=== PATIENT | female | born 1990 | race Caucasian/White ===

== ENCOUNTER 2016-06-17 01:18 | Emergency (ER) | payer MEDICAID ==
[~2016-06-17 01:18] MED LIST: MACR100C PO; ZOFR4TAB3 SL
[2016-06-17 02:32] LABS: BACTERIA, URINE RARE /hpf; BLOOD, URINE NEG (NEG); COMMENT (UR) CULT NOT INDICATED; CULTURE IF INDICATED CULT NOT INDICATED; GLUCOSE,URINE NEG (NEG); KETONE, URINE NEG (NEG); MUCUS URINE FEW /lpf (OCC); NITRITE,URINE NEG (NEG); PH, URINE 6.5 (5.0-8.5); SQUAMOUS EPITHELIAL CELL URINE 4 /hpf (0-5); URINE COLOR LIGHT-YELLOW (YELLW/STRAW)
[2016-06-17 03:19] LABS: AUTOMATED NEUTROPHIL # 6.6 TH/MM3 (1.8-7.7); BASOPHIL % 0.1 % (0.0-2.0); EOSINOPHIL # 0.2 TH/MM3 (0-0.4); EOSINOPHIL % 2.1 % (0.0-4.0); HEMATOCRIT 32.9 % (35.0-46.0); HEMO FLAGS DIFF FINAL; LYMPH % 21.7 % (9.0-44.0); LYMPHOCYTE # 2.2 TH/MM3 (1.0-4.8); MEAN CELL VOLUME 87.7 FL (80.0-100.0); MEAN CORPUSCULAR HEMOGLOBIN 30.3 PG (27.0-34.0); MEAN CORPUSCULAR HGB CONC 34.5 % (32.0-36.0); MONO % 9.5 % (0.0-8.0); NEUT % 66.6 % (16.0-70.0); PLATELET COUNT 176 TH/MM3 (150-450); RED BLOOD COUNT 3.75 MIL/MM3 (4.00-5.30); RED CELL DISTRIBUTION WIDTH 12.4 % (11.6-17.2); WHITE BLOOD COUNT 9.9 TH/MM3 (4.0-11.0)
--- NOTE | 2016-06-17 04:05 | PD ---
HPI Travel History International Travel<30 Days: No Contact w/Intl Traveler<30Days: No Known Affected Area: No History of Present Illness HPI This patient is a 25-year-old 5 para 1031 EDC is August 02, 2016 presently at 33 weeks and 3 days she presents with the chief complaint of contractions which began last night they increased during the day when she became active no rupture of membranes no vaginal bleeding the baby is active her next appointment with Dr. Nova's on June 22 states recent sexual intercourse day before yesterday History Past Medical History Narrative Medical Patient is allergic to Keflex no major medical problems Obstetric History Obstetric History First baby born in 2007 male infant weight 6 lbs. 7 oz. vaginal delivery VIP 3 Past Surgical History Narrative Surgical D&C Family History Narrative Family History Diabetes Social History Alcohol Use: No Tobacco Use: Yes Substance Abuse: No Allergies-Medications (Allergen,Severity, Reaction): Coded Allergies: Keflex (Verified Allergy, Severe, THROAT SWELLS, ITCHING, 12/21/15) Home Meds Active Scripts Ondansetron (Zofran ODT)4 Mg Tab4 Mg SL Q6HR PRN (NAUSEA OR VOMITING) #4 TAB FOR NAUSEA/VOMITING Prov:Saeed Hair MD 12/21/15 Nitrofurantoin Monohyd Macro (Macrobid)100 Mg [id number] Mg PO BID #14 CAP Prov:Saeed Hair MD 12/21/15 Review of Systems General / Constitutional: No: Fever, Weight Gain, Weight Loss, Chills, Other Eyes: No: Diploplia, Blurred Vision, Visual changes, Pain, Photophobia, Other HENT: No: Headaches, Vertigo, Dental Difficulties, Lightheadedness, Other Cardiovascular: No: Irregular Rhythm, Chest Pain or Discomfort, Palpitations, Tachycardia, Syncope, Varicosities, Edema, Cyanosis, Other Respiratory: No: Cough, Short of Breath, Wheezing, Other Gastrointestinal: Abdominal Pain (tractions as per history of present illness) Genitourinary: Frequency Physical Exam Narrative GENERAL: Well-nourished, well-developed patient. Alert oriented 3 and cooperative SKIN: Warm and dry. HEAD: Normocephalic and atraumatic. EYES: No scleral icterus. No injection or drainage. ENT: No nasal drainage noted. Mucous membranes pink. Airway patent. NECK: Supple, trachea midline. No JVD. CARDIOVASCULAR: Regular rate and rhythm without murmurs, gallops, or rubs. RESPIRATORY: Breath sounds equal bilaterally. No accessory muscle use. ABDOMEN/GI: Gravid consistent with stated gestational age soft nontender no palpable contractions no epigastric or right upper quadrant tenderness Gravid to [-] weeks size Fundal Height: [-] GENITOURINARY: Speculum exam is done no gross fluid or blood in vagina thin white discharge External Genitalia: intact and normal in appearance BUS glands: [-] Cervix: [-] Posterior firm Dilatation: [-] Closed Effacement: [-] 0 Station: [-] High Presentation: [-] Membranes: [intact Uterine Contractions: [-] Irregular FHT's: Category: [-] 1 Baseline: [-] 140 Reactive: [-] + Variability: [-] Moderate Decels: [-] 0 EXTREMITIES: No cyanosis or edema. 2+ reflexes NEUROLOGICAL: Awake and alert. Motor and sensory grossly within normal limits. Five out of 5 muscle strength in all muscle groups. Normal speech. Data Data Vital Signs Reviewed: Yes (111/66 pulse is 85 respiration 18 temperature is 98.1) Orders Vital Signs (Adult) .ON ADMISSION (06/17/16 02:17) ^ Labor Status (06/17/16 02:17) Urinalysis - C+S If Indicated (06/17/16 02:17) ^ Hydration (06/17/16 02:17) Fibronectin (06/17/16 03:05) Complete Blood Count With Diff (06/17/16 03:05) Vital Signs (Adult) .ON ADMISSION (06/17/16 03:57) ^ Labor Status (06/17/16 03:57) ^ Hydration (06/17/16 03:57) Fibronectin (06/17/16 03:57) Labs fibronectin is negative white count 9.9 hemoglobin 11.4 hematocrit 32.9 Laboratory Tests Test 06/17/16 06/17/16 01:40 03:00 Urine Color LIGHT-YELLOW Urine Turbidity CLEAR Urine pH 6.5 Urine Specific [place] 1.007 Urine Protein NEG Urine Glucose (UA) NEG Urine Ketones NEG Urine Occult Blood NEG Urine Nitrite NEG Urine Bilirubin NEG Urine Urobilinogen LESS THAN 2.0 Urine Leukocyte Esterase NEG Urine RBC 1 Urine WBC 1 Urine Squamous Epithelial 4 Cells Urine Bacteria RARE Urine Mucus FEW Microscopic Urinalysis Comment CULT NOT INDICATED White Blood Count 9.9 Red Blood Count 3.75 Hemoglobin 11.4 Hematocrit 32.9 Mean Corpuscular Volume 87.7 Mean Corpuscular Hemoglobin 30.3 Mean Corpuscular Hemoglobin 34.5 Concent Red Cell Distribution Width 12.4 Platelet Count 176 Mean Platelet Volume 8.4 Neutrophils (%) (Auto) 66.6 Lymphocytes (%) (Auto) 21.7 Monocytes (%) (Auto) 9.5 Eosinophils (%) (Auto) 2.1 Basophils (%) (Auto) 0.1 Neutrophils # (Auto) 6.6 Lymphocytes # (Auto) 2.2 Monocytes # (Auto) 0.9 Eosinophils # (Auto) 0.2 Basophils # (Auto) 0.0 CBC Comment DIFF FINAL Differential Comment Fibronectin NEGATIVE MDM Medical Record Reviewed: No Interpretation(s) 25-year-old at 33 weeks and 3 days contractions Taloga Robles Rule out UTI Narrative Course / MDM Patient feeling better Category 1 tracing Contractions resolved Fibronectin is negative Will give a dose of Vistaril Patient follow-up with Dr. Nova and 24-48 hours Plan External monitoring IV fluid hydration Urinalysis no culture indicated fibronectin is negative White count 9.9 Diagnosis Diagnosis: Primary Impression: Bandar Robles contractions Additional Impressions: 33 weeks gestation of Cigarette smoker Disposition: 01 DISCHARGE HOME Condition: Stable Patient Instructions: General Instructions, Labor (ED), Abdominal Pain in (ED) Additional Instructions: RETURN FOR CONTRACTIONS, LOSS OF FLUID (WATER BREAKING), VAGINAL BLEEDING, OR DECREASED MOVEMENT. DRINK 8-10 LARGE GLASSES OF WATER EVERY DAY. KEEP YOUR SCHEDULED APPOINTMENT WITH YOUR PROVIDER. Departure Forms: Tests/Procedures Malini Lopez MD Jun 17, 2016 04:05
== END 2016-06-17 04:20 | disposition home or self-care (01) ==
LOC: HOBED 01:18
DX: O47.03 False labor before 37 completed weeks of gestation, third trimester (principal); O99.333 Smoking (tobacco) complicating pregnancy, third trimester; Z3A.33 33 weeks gestation of pregnancy
CPT/HCPCS: 59025; 81001; 82731; 85025; 96360

== ENCOUNTER 2016-07-14 15:10 | Emergency (ER) | payer MEDICAID ==
--- NOTE | 2016-07-14 16:37 | PD ---
HPI Travel History International Travel<30 Days: No Contact w/Intl Traveler<30Days: No Known Affected Area: No History of Present Illness HPI This patient is a 25-year-old 5 para 1031 EDC is August 02, 2016 presently at 37 weeks and 2 days she presented with a chief complaint of possibly leaking fluid and decreased movement Patient of Dr. Estrada care has been unremarkable. Amnisure is negative. Biophysical profile is 10 out of 10 History Past Medical History Narrative Medical Patient is allergic to Keflex history of UTI Obstetric History Obstetric History First baby born in 2007 male infant weight 6 lbs. 7 oz. vaginal delivery Spontaneous AB 3 and one D&C done Past Surgical History Narrative Surgical D&C Family History Family History: Negative Social History Alcohol Use: No Tobacco Use: No Substance Abuse: No Allergies-Medications (Allergen,Severity, Reaction): Coded Allergies: Keflex (Verified Allergy, Severe, THROAT SWELLS, ITCHING, 07/14/16) Home Meds Active Scripts Ondansetron (Zofran ODT)4 Mg Tab4 Mg SL Q6HR PRN (NAUSEA OR VOMITING) #4 TAB FOR NAUSEA/VOMITING Prov:Saeed Hair MD 12/21/15 Nitrofurantoin Monohyd Macro (Macrobid)100 Mg [id number] Mg PO BID #14 CAP Prov:Saeed Hair MD 12/21/15 Review of Systems Genitourinary: Other (questionably leaking fluid) Physical Exam Narrative GENERAL: Well-nourished, well-developed patient. Alert oriented 3 and cooperative in no acute distress CARDIOVASCULAR: Regular rate and rhythm without murmurs, gallops, or rubs. RESPIRATORY: Breath sounds equal bilaterally. No accessory muscle use. ABDOMEN/GI: Gravid consistent with 37 weeks no palpable contractions Gravid to [-] weeks size Fundal Height: [-] GENITOURINARY: External Genitalia: intact and normal in appearance BUS glands: [-] Cervix: [-] Posterior soft Dilatation: [-] Fingertip Effacement: [-] 0 Station: [-] Ballotable Presentation: [-] Vertex Membranes: [intact Uterine Contractions: [-]0 FHT's: Category: [-] 1 Baseline: [-] 130 Reactive: [-] + Variability: [-] Moderate Decels: [-] 0 EXTREMITIES: No cyanosis or edema. BACK: Nontender without obvious deformity. No CVA tenderness. NEUROLOGICAL: Awake and alert. Motor and sensory grossly within normal limits. Five out of 5 muscle strength in all muscle groups. Normal speech. Data Data Vital Signs Reviewed: Yes (blood pressures 113/76 pulse 84 respirations 16 temperature is 98) Orders Vital Signs (Adult) .ON ADMISSION (07/14/16 15:50) ^ Labor Status (07/14/16 15:50) Urinalysis - C+S If Indicated (07/14/16 15:50) ^ Hydration (07/14/16 15:50) Group B Beta Strep Scrn (Gbs) (07/14/16 15:50) Us Ob Bpp Wo Nst W Repeat (07/14/16 15:50) Labs Biophysical profile 03/22 Amniotic fluid index is 16.5 estimated weight 5 lbs. 13 oz. the vertex presentation 3 vessel cord anterior grade 1-2 placenta no previa MDM Medical Record Reviewed: No Interpretation(s) 25-year-old at 37 weeks and 2 days Not in labor Clinical evidence of ruptured membranes 10 out of 10 biophysical profile Narrative Course / MDM Discharge home By mouth fluid hydration kick count Keep next appointment with Dr. Estrada Diagnosis Diagnosis: Primary Impression: 37 weeks gestation of Additional Impression: Decreased movement Disposition: DISCHARGE HOME Condition: Stable Malini Lopez MD Jul 14, 2016 16:36
[2016-07-14 17:24] LABS: BACTERIA, URINE OCC /hpf; BLOOD, URINE NEG (NEG); COMMENT (UR) CULT NOT INDICATED; CULTURE IF INDICATED CULT NOT INDICATED; GLUCOSE,URINE NEG (NEG); KETONE, URINE NEG (NEG); NITRITE,URINE NEG (NEG); PH, URINE 6.5 (5.0-8.5); SQUAMOUS EPITHELIAL CELL URINE 6 /hpf (0-5); URINE COLOR LIGHT-YELLOW (YELLW/STRAW)
== END 2016-07-14 16:44 | disposition home or self-care (01) ==
LOC: HOBED 15:10
DX: O36.8130 Decreased fetal movements, third trimester, not applicable or unspecified (principal); Z3A.37 37 weeks gestation of pregnancy
CPT/HCPCS: 59025; 76815; 76816; 76819; 81001; 84112; 87081

== ENCOUNTER 2016-07-19 01:45 | Emergency (ER) | payer MEDICAID ==
--- NOTE | 2016-07-19 02:36 | PD ---
HPI Chief Complaint contractions Date Seen: Jul 19, 2016 Time Seen: 02:25 Travel History International Travel<30 Days: No Contact w/Intl Traveler<30Days: No Known Affected Area: No History of Present Illness HPI 25-year-old 2 para 1 at 38+ weeks gestation with complaint of contractions. She denies rupture membranes, bleeding, decreased movement. Para: 1 : 2 History Past Medical History Medical History: Denies Significant Hx Obstetric History Obstetric History Prior vaginal delivery 1 Past Surgical History Narrative Surgical None Surgical History: No Previous Surgery Family History Family History: Negative Social History Alcohol Use: No Tobacco Use: Yes (2.) Substance Abuse: No Allergies-Medications (Allergen,Severity, Reaction): Coded Allergies: Keflex (Verified Allergy, Severe, THROAT SWELLS, ITCHING, 07/14/16) Home Meds Active Scripts Ondansetron (Zofran ODT)4 Mg Tab4 Mg SL Q6HR PRN (NAUSEA OR VOMITING) #4 TAB FOR NAUSEA/VOMITING Prov:Saeed Hair MD 12/21/15 Nitrofurantoin Monohyd Macro (Macrobid)100 Mg [id number] Mg PO BID #14 CAP Prov:Saeed Hair MD 12/21/15 Review of Systems Except as stated in HPI: all other systems reviewed are Neg Physical Exam Narrative GENERAL: Well-nourished, well-developed patient. SKIN: Warm and dry. HEAD: Normocephalic and atraumatic. EYES: No scleral icterus. No injection or drainage. ENT: No nasal drainage noted. Mucous membranes pink. Airway patent. NECK: Supple, trachea midline. No JVD. ABDOMEN/GI: Abdomen soft, non-tender, bowel sounds present, no rebound, no guarding Gravid to [-] weeks size Fundal Height: [-] GENITOURINARY: External Genitalia: intact and normal in appearance BUS glands: [-] Cervix: [-] Dilatation: [-1] Effacement: [50] Station: [-2-] Presentation: [-] Membranes: [intact ] Uterine Contractions: [Irregular-] FHT's: Category: [-1] Baseline: [-] Reactive: [-Yes] Variability: [-] Decels: [-] EXTREMITIES: No cyanosis or edema. BACK: Nontender without obvious deformity. No CVA tenderness. NEUROLOGICAL: Awake and alert. Motor and sensory grossly within normal limits. Five out of 5 muscle strength in all muscle groups. Normal speech. Data Data Vital Signs Reviewed: Yes MDM Medical Record Reviewed: Yes Narrative Course / MDM 25-year-old 2 para 1 at 38+ weeks gestation with irregular contractions , not in labor Plan: Labor precautions reviewed, follow-up for visit as scheduled Diagnosis Diagnosis: Primary Impression: 38 weeks gestation of Additional Impression: Irregular contractions Disposition: 01 DISCHARGE HOME Condition: Good ([id number]) Patient Instructions: General Instructions, Early Labor Signs (ED), Having Your Baby: The Labor Process (GEN), Movement (ED) Departure Forms: Tests/Procedures Cal Lazo MD Jul 19, 2016 02:36
== END 2016-07-19 04:53 | disposition home or self-care (01) ==
LOC: HOBED 01:45
DX: O62.2 Other uterine inertia (principal); O99.333 Smoking (tobacco) complicating pregnancy, third trimester; Z3A.38 38 weeks gestation of pregnancy
CPT/HCPCS: 59025

== ENCOUNTER → 2016-07-20 | Outpatient (CLI) | payer MEDICAID ==
[~2016-07-20] MED LIST changes: +IBUP-232 PO; +OXYC1TAB63 PO
== END ==
LOC: HPND 14:37
PROVIDERS: ATTEND Obstetrics & Gynecology
DX: O36.8130 Decreased fetal movements, third trimester, not applicable or unspecified (principal); O36.5930 Maternal care for other known or suspected poor fetal growth, third trimester, not applicable or unspecified
CPT/HCPCS: 76818

== ENCOUNTER 2016-07-27 20:02 | Inpatient (IN) | payer MEDICAID ==
[~2016-07-27] VITALS: Ht 152.4 cm; Wt 59.0 kg
[~2016-07-27 20:02] MED LIST changes: -IBUP-232 PO; -OXYC1TAB63 PO
[2016-07-27 20:37] VITALS: PULSE 75
[2016-07-27 20:38] VITALS: RESP 18
[2016-07-27] MEDS: LACTATED RINGER'S 1000 ML IV SCH (21:24)
[2016-07-27] MEDS ORDERED: MINERAL OIL 10 ML VIAL TOP PRN (21:30)
[2016-07-27] MEDS ORDERED: NS 1000 ML XX PRN (21:30)
[2016-07-27] MEDS ORDERED: NS 1000 ML IV PRN (21:30)
[2016-07-27] MEDS ORDERED: MISOPROSTOL 25 MCG SUPP VAGINAL ONE ×3 (21:30)
[2016-07-27] MEDS ORDERED: OXYTOCIN 30 UNITS 500ML PREMIX IV ONE (21:30)
[2016-07-27] MEDS ORDERED: LACTATED RINGER'S 1000 ML BOLUS IV PRN (21:30)
[2016-07-27] MEDS ORDERED: ZOLPIDEM TARTRATE 10 MG TAB PO PRN (21:30)
[2016-07-27] MEDS ORDERED: LIDOCAINE HCL 1% 50 ML VIAL INFIL PRN (21:30)
[2016-07-27] MEDS ORDERED: NS 500 ML BOLUS IV PRN (21:30)
[2016-07-27] MEDS ORDERED: LIDOCAINE HCL 1% 50 ML VIAL I-DERMAL PRN (21:30)
[2016-07-27] MEDS ORDERED: ONDANSETRON HCL 4 MG/2 ML VIAL IV PRN (21:30)
[2016-07-27] MEDS ORDERED: CITRIC ACID-SODIUM CITRATE LIQ 30 ML UDC PO SCH (21:30)
[2016-07-27] MEDS ORDERED: OXYTOCIN 30 UNITS/NS 500ML PREMIX IV SCH (21:30)
[2016-07-27 21:49] VITALS: BP 116/62; PULSE 72
[2016-07-27 21:50] VITALS: RESP 18
[2016-07-27 22:07] LABS: AUTOMATED NEUTROPHIL # 6.2 TH/MM3 (1.8-7.7); BASOPHIL % 0.2 % (0.0-2.0); EOSINOPHIL # 0.1 TH/MM3 (0-0.4); EOSINOPHIL % 1.3 % (0.0-4.0); HEMATOCRIT 33.7 % (35.0-46.0); HEMO FLAGS DIFF FINAL; LYMPH % 20.3 % (9.0-44.0); LYMPHOCYTE # 1.8 TH/MM3 (1.0-4.8); MEAN CELL VOLUME 86.6 FL (80.0-100.0); MEAN CORPUSCULAR HEMOGLOBIN 29.6 PG (27.0-34.0); MEAN CORPUSCULAR HGB CONC 34.2 % (32.0-36.0); MONO % 8.2 % (0.0-8.0); PLATELET COUNT 208 TH/MM3 (150-450); RED BLOOD COUNT 3.89 MIL/MM3 (4.00-5.30); WHITE BLOOD COUNT 8.8 TH/MM3 (4.0-11.0)
[2016-07-27 22:10] LABS: BACTERIA, URINE RARE /hpf; BLOOD, URINE MOD (NEG); COMMENT (UR) CULTURE INDICATED; CULTURE IF INDICATED CULTURE INDICATED; GLUCOSE,URINE NEG (NEG); KETONE, URINE NEG (NEG); MUCUS URINE FEW /lpf (OCC); NITRITE,URINE NEG (NEG); SQUAMOUS EPITHELIAL CELL URINE 7 /hpf (0-5); URINE COLOR YELLOW (YELLW/STRAW)
[2016-07-27] MEDS: LACTATED RINGER'S 1000 ML INJ 1,000 ML IV SCH (22:27)
[2016-07-27 22:50] VITALS: BP 113/57; PULSE 61
[2016-07-27 22:52] VITALS: RESP 18; TEMP 98.8
[2016-07-28] VITALS (35 sets, daily range): BP systolic 82–126; BP diastolic 47–96; PULSE 56–97; RESP 16–18; TEMP 97.6–98.4; O2SAT 96–100
[2016-07-28] MEDS ORDERED: MISOPROSTOL 25 MCG SUPP VAGINAL ONE (01:00)
[2016-07-28] MEDS ORDERED: TERBUTALINE INJ 1 MG/ML AMP ONE (02:58)
[2016-07-28] MEDS: LACTATED RINGER'S 1000 ML IV SCH ×2 (05:30→08:04)
[2016-07-28] MEDS: LACTATED RINGER'S 1000 ML INJ 1,000 ML IV SCH (05:30)
[2016-07-28] MEDS ORDERED: ePHEDrine/NS 25 MG/5 ML SYR ONE (07:24)
[2016-07-28] MEDS ORDERED: fentaNYL 2MCG-BUPIV 0.125% INJ 100 ML ONE (07:24)
[2016-07-28] MEDS ORDERED: NO SYSTEM NARCOTICS XX PRN (09:00)
[2016-07-28] MEDS ORDERED: ePHEDrine/NS 50 MG/5 ML SYR IV PRN (09:00)
[2016-07-28] MEDS ORDERED: fentaNYL 2MCG-BUPIV 0.125% 100 ML EPIDURAL SCH (09:00)
[2016-07-28] MEDS ORDERED: DO NOT ADMINISTER ANTICOAGULANTS XX PRN (09:00)
[2016-07-28] MEDS ORDERED: LIDOCAINE HCL 1% 50 ML VIAL ONE (09:52)
--- NOTE | 2016-07-28 11:43 | PD.OB.DELI ---
Delivery Date: Jul 28, 2016 Anesthesia: Epidural Episiotomy: None Vaginal Delivery: Normal Presentation: Occiput anterior Nuchal Cord: None Delayed cord clamping (45 sec): Yes Infant: Male One Minute : 8 Five Minute : 8 Weight: 5/13 Care: Suctioned, Spontaneous crying, Responded to stimulation Placenta: Spontaneous delivery, Intact, 3 vessel cord Laceration: Perineal laceration, 1 deg Repair: Vicryl running Additional Information Beautiful delivery of baby Sourav. Small 1st degree tear of right labia.. 5-0 vicryl Pita Estrada MD Jul 28, 2016 11:43
[2016-07-28] MEDS ORDERED: BENZOCAINE 20% TOPICAL SPRAY 60 ML CAN TOPICAL PRN (12:00)
[2016-07-28] MEDS ORDERED: DOCUSATE SODIUM 50 MG/SENNA 8.6 MG TAB PO PRN (12:00)
[2016-07-28] MEDS ORDERED: ONDANSETRON ODT 4 MG TAB PO PRN (12:00)
[2016-07-28] MEDS ORDERED: OXYTOCIN 30 UNITS-500ML PREMIX 500 ML IV ONE (12:00)
[2016-07-28] MEDS ORDERED: ZOLPIDEM TARTRATE 5 MG TAB PO PRN (12:00)
[2016-07-28] MEDS ORDERED: SODIUM CHLORIDE 0.9% FLUSH 5 ML FLUSH IV PRN (12:00)
[2016-07-28] MEDS ORDERED: ALUMINUM/MAGNESIUM/SIMETH 30 ML CUP PO PRN (12:00)
[2016-07-28] MEDS ORDERED: ACETAMINOPHEN 325 MG TAB PO PRN (12:00)
--- NOTE | 2016-07-28 12:40 | MH ---
cc: VANIA ESTRADA DATE OF ADMISSION: 07/27/2016 ADMISSION DIAGNOSIS 1. Intrauterine at 39 weeks. 2. Intrauterine growth restriction. HISTORY OF PRESENT ILLNESS Terrance is a 25-year-old white female, para 1-0-2-1, whose last menstrual period and early ultrasound put her a little over 39 weeks. She comes in today for a repeat scan and to get tested. I felt she had IUGR, she was measuring under the 10th percentile, sent her to diagnostics and they got a normal scan. However, she came back today and we re-measured her biometry and she certainly is intrauterine growth restricted. Therefore we are going to go ahead and induce her at this time. She is getting a biophysical profile today. PAST OB HISTORY She is para 1-0-2-1. She had one term . She had one SAB, one TAB. She is Rh negative. PAST DIRECTOR INDUSTRIAL HISTORY Her Pap smear in January 2016 was negative. Her cultures in January 2016 were negative. PAST SURGICAL HISTORY Negative. PAST MEDICAL HISTORY 1. Headaches. 2. Lower back pain. 3. Heart palpitations. 4. Anemia. SOCIAL HISTORY She is single. She smokes 2-3 cigarettes per day. She does not drink alcohol or take drugs. FAMILY HISTORY Diabetes mellitus and breast cancer in her grandparents. ALLERGIES CEPHALOSPORINS. MEDICATIONS Current medications are vitamins. REVIEW OF SYSTEMS No headaches, no scotoma. She is a little bit short of breath but no cough or cold. She has no pressure in her chest or pain in her chest. She reports good movement. Denies rupture of membranes, bleeding or regular uterine contractions. PHYSICAL EXAMINATION GENERAL: A well-developed, well-nourished female in no acute distress. VITAL SIGNS: Weight is 120. Blood pressure 110/68. HEENT: Normocephalic, atraumatic. NECK: Supple. Trachea is midline. No thyromegaly or adenopathy. CHEST: Clear to auscultation. HEART: Regular rate and rhythm without murmur. ABDOMEN: The abdomen is gravid, nontender. The fundal height is small, measuring 34 cm. PELVIC: External genitalia is normal. The vagina is clean. Cervix is 1-2 cm, 20-30% effaced, mid position, soft. EXTREMITIES: No clubbing, cyanosis or edema. ASSESSMENT AND PLAN 1. Intrauterine at 39+ weeks. 2. Intrauterine growth restriction. She needs to be delivered. Will put her in the hospital [facility] for Cytotec cervical ripening and start Pitocin in the morning. Her last baby came fairly quickly without any difficulties. I am expecting a normal vaginal delivery. 3. Anemia. Will check her blood count on admission and give her iron as needed. 4. Tobacco abuse counseling. She is advised to quit smoking especially since the baby is coming home. 5. Rh negative. We need to give her RhoGAM if she needs it. Will check the baby's blood type once the baby is born. 6. GBS is negative. R. Vania Estrada MD RJV/BT /2:40 PM /12:40 PM
[2016-07-28] MEDS: WITCH HAZEL 50%/GLYCERIN 12.5% 40 PAD JAR TOPICAL PRN (14:06)
[2016-07-28] MEDS ORDERED: MEASLES, MUMPS, RUBELLA VACCINE 0.5 ML VIAL SQ ONE (16:00)
[2016-07-28] MEDS ORDERED: DIPHTH/TETANUS/ACEL PERTUSSIS (BOOSTER) 0.5 ML VIAL/PFS IM ONE (16:00)
[2016-07-28] MEDS: IBUPROFEN 600 MG TAB PO PRN (16:33)
[2016-07-28] MEDS ORDERED: SODIUM CHLORIDE 0.9% FLUSH 5 ML FLUSH IV SCH (21:00)
[2016-07-28] MEDS: oxyCODONE/ACETAMINOPHEN 5 MG/325 MG TAB PO PRN (21:24)
[2016-07-29] MEDS: oxyCODONE/ACETAMINOPHEN 5 MG/325 MG TAB PO PRN ×2 (02:05→11:03)
[2016-07-29] MEDS: IBUPROFEN 600 MG TAB PO PRN ×2 (05:44→20:04)
[2016-07-29] MEDS ORDERED: OXYC1TAB63 PO (07:52)
[2016-07-29] MEDS ORDERED: IBUP-232 PO (07:52)
--- NOTE | 2016-07-29 10:14 | HHI.OB ---
Subjective Post Day: 1 Objective Vitals/I&O Vital Signs Date Time Temp Pulse Resp B/P Pulse Ox O2 Delivery O2 Flow Rate FiO2 07/28/16 14:00 98.4 56 16 117/70 07/28/16 13:00 80 105/64 07/28/16 12:46 96 114/69 07/28/16 12:31 68 115/47 07/28/16 12:16 59 100/70 07/28/16 12:02 63 113/67 07/28/16 11:40 18 07/28/16 11:30 94 109/79 07/28/16 11:15 92 111/96 07/28/16 11:05 98 07/28/16 11:05 90 07/28/16 11:00 100 07/28/16 11:00 126/80 07/28/16 11:00 85 07/28/16 10:55 61 07/28/16 10:50 62 07/28/16 10:45 62 112/78 07/28/16 10:40 59 07/28/16 10:35 60 07/28/16 10:30 58 106/72 07/28/16 10:25 63 07/28/16 10:20 58 07/28/16 10:15 58 114/70 100 Objective Remarks GENERAL: Well-nourished, well-developed patient. CARDIOVASCULAR: Regular rate and rhythm without murmurs, gallops, or rubs. RESPIRATORY: Breath sounds equal bilaterally. No accessory muscle use. ABDOMEN/GI: Abdomen soft, non-tender. Fundus: Firm, non-tender at umbilicus. GENITOURINARY: Light to moderate bleeding. EXTREMITIES: No cyanosis or edema, non-tender, without signs of DVT. Medications and IVs Current Medications Medications (Trade) Dose Ordered Sig/Mendy Route Start Time Stop Time Status Last Admin (NS Flush) 2 ml BID IV 07/28/16 21:00 07/28/16 21:00 (NS Flush) 2 ml UNSCH PRN IV 07/28/16 12:00 (Tylenol) 650 mg Q4H PRN PO 07/28/16 12:00 (Motrin) 600 mg Q6H PRN PO 07/28/16 12:00 07/29/16 05:44 (Percocet 5-325 Mg) 1 tab Q4H PRN PO 07/28/16 12:00 (Percocet 5-325 Mg) 2 tab Q4H PRN PO 07/28/16 12:00 07/29/16 02:05 (Americaine 20% Top Spr) 1 spray Q4H PRN TOPICAL 07/28/16 12:00 07/28/16 14:06 (Tucks Pads) 1 applic QID PRN TOPICAL 07/28/16 12:00 07/28/16 14:06 (Denise-Colace) 2 tab Q12H PRN PO 07/28/16 12:00 (Ambien) 5 mg HS PRN PO 07/28/16 12:00 (Mag-Al Plus Susp Liq) 15 ml Q8H PRN PO 07/28/16 12:00 (Zofran Odt) 4 mg Q6H PRN PO 07/28/16 12:00 Assessment/Plan Problem List: (1) Normal vaginal delivery Assessment and Plan pt doing well bonding with pain well controlled with oral pain medication routine Discharge Planning consider dc home tomorrow Dina Peña Jul 29, 2016 10:14
--- NOTE | 2016-07-29 10:15 | HHI.DCPOC ---
Discharge Care Plan Diagnosis: (1) Normal vaginal delivery Your Health Problems Are: Vaginal delivery Report Symptoms to Your Doctor -Temperate above 100.5 degrees -Redness, of incision or excessive or foul smelling drainage -Unusual pain or calf pain -Increased vaginal bleeding -Painful or difficulty urinating -Feelings of extreme sadness or anxiety after 2 weeks Goals to Promote Your Health * To prevent worsening of your condition and complications * To maintain your health at the optimal level Directions to Meet Your Goals Take your medications as prescribed Follow your dietary instruction Follow activity as directed Ensure plenty of rest for recovery Drink fluids for hydration Keep your appointments as scheduled Take your immunizations and boosters as scheduled If your symptoms worsen call your PCP, if no PCP go to Urgent Care Center or Emergency Room Smoking is Dangerous to Your Health. Avoid second hand smoke Call the 24-hour crisis hotline for domestic abuse at Dina Peña Jul 29, 2016 10:15
--- NOTE | 2016-07-29 10:20 | HHI.DS ---
Admission Date Jul 27, 2016 at 20:02 Discharge Date: Jul 30, 2016 Admitting Diagnosis 38 weeks iugr Diagnosis: (1) Normal vaginal delivery Delivery Date: Jul 28, 2016 Vaginal Delivery: Normal : Male Brief History 38 weeks IUGR induction Hospital Course induction at 38 weeks for IUGR routine Pt Condition on Discharge: Good Discharge Disposition: Discharge Home Discharge Instructions Diet Instructions: As Tolerated, No Restrictions Additional Diet Instructions: Drink at least 8 - 16 oz bottles of water a day Activities You Can Perform: Shower Only-No Bath, Sitz Bath Activities to Avoid: Lifting/Bending, Sexual Activity Additional Activity Instruc.: No driving until off pain medications Do not lift anything heavier than your baby in an infant carrier Follow up Referrals: BUSINESS ANALYST - 2 Weeks @ [facility] [place] New Medications: Ibuprofen (Ibuprofen) 600 Mg Tab 600 MG PO Q6H Pain Management #30 Ref 1 TAB Oxycodone-Acetaminophen (Oxycodone-Acetaminophen) 5-325 mg Tab 1 TAB PO Q4H moderate pain #15 TAB Dina Peña Jul 29, 2016 10:20
[2016-07-30] MEDS: oxyCODONE/ACETAMINOPHEN 5 MG/325 MG TAB PO PRN ×3 (00:17→10:24)
[2016-07-30] MEDS: IBUPROFEN 600 MG TAB PO PRN (05:45)
[2016-07-30 07:20] VITALS: BP 114/80; PULSE 54; RESP 16; TEMP 97.9
[2016-07-30] MEDS: WITCH HAZEL 50%/GLYCERIN 12.5% 40 PAD JAR TOPICAL PRN (08:45)
--- NOTE | 2016-07-30 09:39 | HHI.OB ---
Subjective Post Day: 2 Objective Vitals/I&O vs stable Objective Remarks GENERAL: Well-nourished, well-developed patient. CARDIOVASCULAR: Regular rate and rhythm without murmurs, gallops, or rubs. RESPIRATORY: Breath sounds equal bilaterally. No accessory muscle use. ABDOMEN/GI: Abdomen soft, non-tender. Fundus: Firm, non-tender at umbilicus. GENITOURINARY: Light to moderate bleeding. EXTREMITIES: No cyanosis or edema, non-tender, without signs of DVT. Medications and IVs Current Medications Medications (Trade) Dose Ordered Sig/Mendy Route Start Time Stop Time Status Last Admin (NS Flush) 2 ml BID IV 07/28/16 21:00 07/28/16 21:00 (NS Flush) 2 ml UNSCH PRN IV 07/28/16 12:00 (Tylenol) 650 mg Q4H PRN PO 07/28/16 12:00 (Motrin) 600 mg Q6H PRN PO 07/28/16 12:00 07/30/16 05:45 (Percocet 5-325 Mg) 1 tab Q4H PRN PO 07/28/16 12:00 07/30/16 05:45 (Percocet 5-325 Mg) 2 tab Q4H PRN PO 07/28/16 12:00 07/29/16 02:05 (Americaine 20% Top Spr) 1 spray Q4H PRN TOPICAL 07/28/16 12:00 07/28/16 14:06 (Tucks Pads) 1 applic QID PRN TOPICAL 07/28/16 12:00 07/30/16 08:45 (Denise-Colace) 2 tab Q12H PRN PO 07/28/16 12:00 07/29/16 11:03 (Ambien) 5 mg HS PRN PO 07/28/16 12:00 (Mag-Al Plus Susp Liq) 15 ml Q8H PRN PO 07/28/16 12:00 (Zofran Odt) 4 mg Q6H PRN PO 07/28/16 12:00 Assessment/Plan Problem List: (1) Normal vaginal delivery Plan: routine Assessment and Plan pt doing well bonding with pain well controlled with oral pain medication routine Discharge Planning dc home today Dina Peña Jul 30, 2016 09:39
== END 2016-07-30 13:08 | disposition home or self-care (01) | DRG 775 ==
LOC: H2EB 20:02 → H1EA 07-28 13:30
PROVIDERS: ADMIT Obstetrics & Gynecology; ATTEND Obstetrics & Gynecology
PROC: 3E0P7GC Introduction of Other Therapeutic Substance into Female Reproductive, Via Natural or Artificial Opening (ICD-10-PCS; 2016-07-27)
PROC: 10E0XZZ Delivery of Products of Conception, External Approach (ICD-10-PCS; principal; 2016-07-28)
PROC: 0HQ9XZZ Repair Perineum Skin, External Approach (ICD-10-PCS; 2016-07-28)
PROC: 3E0S3CZ (ICD-10-PCS; 2016-07-28)
PROC: 00HU33Z Insertion of Infusion Device into Spinal Canal, Percutaneous Approach (ICD-10-PCS; 2016-07-28)
DX: O36.5930 Maternal care for other known or suspected poor fetal growth, third trimester, not applicable or unspecified (principal); O99.02 Anemia complicating childbirth; D64.9 Anemia, unspecified; O70.0 First degree perineal laceration during delivery; O99.334 Smoking (tobacco) complicating childbirth; F17.210 Nicotine dependence, cigarettes, uncomplicated; Z37.0 Single live birth; Z3A.39 39 weeks gestation of pregnancy
CPT/HCPCS: 59025; 81001; 85025; 85461; 86850; 86900; 86901; 87086; 88307; 90384; 90715; J2405; J2590; J2790; J3010; J3105; J7120

== ENCOUNTER 2017-06-24 09:32 | Emergency (ER) | payer MEDICAID ==
[~2017-06-24] VITALS: Ht 152.4 cm; Wt 50.0 kg
[~2017-06-24 09:32] MED LIST changes: +IBUP-232 PO; -MACR100C PO; +OXYC1TAB63 PO; -ZOFR4TAB3 SL
[2017-06-24 09:34] VITALS: BP 122/75; PULSE 105; RESP 16; TEMP 98.6; O2SAT 99
[2017-06-24] MEDS ORDERED: MAGICADU2 SWISH-SPIT (12:11)
[2017-06-24] MEDS ORDERED: PENI500T PO (12:11)
--- NOTE | 2017-06-24 12:16 | PD ---
HPI Chief Complaint: Oral / Dental Pain or Problem Time Seen by Provider: 11:58 Travel History International Travel<30 days: No Contact w/Intl Traveler<30days: No Traveled to known affect area: No History of Present Illness HPI This is a 26 her old female who is who is 12 weeks estimated gestational age based on ultrasound performed 2 weeks ago. She presents for evaluation of dental pain. Symptoms started 1 week ago. Pain is a throbbing pain, constant, localized to the right mandibular first molar, unrelieved with use [id number] analgesics. Denies fevers, chills, cough, congestion, sore throat. She is attempting to establish care with a dentist. She has no other complaints at this time. PFSH Past Medical History Cancer: No Cardiovascular Problems: No Diminished Hearing: No Endocrine: No Genitourinary: No Immune Disorder: No Implanted Vascular Access Dvce: No Musculoskeletal: No Neurologic: No Psychiatric: No Reproductive: Yes (PCOS) Respiratory: No Immunizations Current: No Myocardial Infarction: Yes (SINCE 5TH GRADE; (11/12/10 patient denies)) Tetanus Vaccination: < 5 Years Influenza Vaccination: Yes ?: LMP: 04/12/2017 : 6 Para: 2 Miscarriage: 3 : 1 Ovarian Cysts: Yes Dilation and Curettage (D&C): Yes Past Surgical History Gynecologic Surgery: Yes Other Surgery: No Social History Alcohol Use: No Tobacco Use: No (quit 3 months ago) Substance Use: Yes (marijuana occasionally ) Allergies-Medications (Allergen,Severity, Reaction): Coded Allergies: cephalexin (Unverified Allergy, Severe, THROAT SWELLS, ITCHING, 06/24/17) Reported Meds & Prescriptions Reported Meds & Active Scripts Active Magic Mouthwash Adult Liq (Multi-Ingredient Mouthwash/Gargle) 120 Ml Susp 10 Ml SWISH-SPIT ACHS Each 5mL contains: Nystatin 200,000units, Diphenhydramine 4.25mg, Viscous Lidocaine 10mg, Sheridan syrup 0.8 mL Penicillin V Potassium 500 Mg Tab 500 Mg PO Q8H 7 Days Ibuprofen 600 Mg Tab 600 Mg PO Q6H Oxycodone-Acetaminophen 5-325 mg Tab 1 Tab PO Q4H Review of Systems Except as stated in HPI: all other systems reviewed are Neg Physical Exam Narrative GENERAL: Well-developed well-nourished female in no acute distress SKIN: Warm and dry. HEAD: Atraumatic. Normocephalic. EYES: Pupils equal and round. No scleral icterus. No injection or drainage. ENT: No nasal bleeding or discharge. Mucous membranes pink and moist. The right mandibular first molar is decayed and tender to palpation. NECK: Trachea midline. No JVD. No lymphadenopathy or submandibular edema. CARDIOVASCULAR: Regular rate and rhythm. No murmur appreciated. RESPIRATORY: No accessory muscle use. Clear to auscultation. Breath sounds equal bilaterally. GASTROINTESTINAL: Abdomen soft, non-tender, nondistended. Hepatic and splenic margins not palpable. Data Data Last Documented VS Vital Signs Date Time Temp Pulse Resp B/P (MAP) Pulse Ox O2 Delivery O2 Flow Rate FiO2 06/24/17 09:34 98.6 105 16 122/75 (91) 99 Orders Orders Ed Discharge Order (06/24/17 12:12) [facility] Medical Decision Making Medical Screen Exam Complete: Yes Emergency Medical Condition: Yes Medical Record Reviewed: Yes Differential Diagnosis Dental caries, pulpitis, pericoronitis, periodontal abscess Narrative Course The patient has dental caries. She has an allergy Keflex but she has taken penicillin multiple times in the past with no problems. She will be discharged with penicillin. Diagnosis Primary Impression: Dental caries Additional Instructions: Medication as prescribed. Follow up with a dentist. Return for any emergent medical conditions. Med/Other Pt SpecificInfo: Prescription(s) given Scripts Cmjqohir-Vcascxxzwyczobu-Lqaafwqsh Liq (Magic Mouthwash Adult Liq) 120 Ml Susp 10 ML SWISH-SPIT ACHS for Mouth sores, #120 ML 1 Refill Each 5mL contains: Nystatin 200,000units, Diphenhydramine 4.25mg, Viscous Lidocaine 10mg, Sheridan syrup 0.8 mL Prov: Geovanny Barakat MD 06/24/17 Penicillin V Potassium (Penicillin V Potassium) 500 Mg Tab 500 MG PO Q8H for Infection for 7 Days, #21 TAB 0 Refills Prov: Geovanny Barakat MD 06/24/17 Disposition: 01 DISCHARGE HOME Condition: Stable Torsten Ruiz Jun 24, 2017 12:16
== END 2017-06-24 12:35 | disposition home or self-care (01) ==
LOC: NEPD 09:32
DX: O99.611 Diseases of the digestive system complicating pregnancy, first trimester (principal); K02.9 Dental caries, unspecified; Z3A.12 12 weeks gestation of pregnancy
CPT/HCPCS: 99284

== ENCOUNTER 2017-07-18 13:53 | Emergency (ER) | payer MEDICAID ==
[~2017-07-18 13:53] MED LIST changes: +MAGICADU2 SWISH-SPIT; +PENI500T PO
[2017-07-18 13:56] VITALS: BP 139/68; PULSE 101; RESP 18; TEMP 98.3; O2SAT 99
[2017-07-18 16:47] LABS: BACTERIA, URINE FEW /hpf; BILIRUBIN, URINE NEG (NEG); BLOOD, URINE NEG (NEG); GLUCOSE,URINE NEG (NEG); KETONE, URINE 10 mg/dL (NEG); MUCUS URINE FEW /lpf (OCC); NITRITE,URINE NEG (NEG); SQUAMOUS EPITHELIAL CELL URINE 23 /hpf (0-5); URINE COLOR YELLOW (YELLW/STRAW); URINE LEUKOCYTE ESTERASE MOD (NEG)
[2017-07-18 16:47] LABS: AUTOMATED NEUTROPHIL # 7.2 TH/MM3 (1.8-7.7); BASOPHIL % 0.2 % (0.0-2.0); EOSINOPHIL # 0.1 TH/MM3 (0-0.4); EOSINOPHIL % 1.1 % (0.0-4.0); HEMATOCRIT 37.1 % (35.0-46.0); HEMOGLOBIN 12.9 GM/DL (11.6-15.3); LYMPHOCYTE # 1.1 TH/MM3 (1.0-4.8); MEAN CELL VOLUME 89.3 FL (80.0-100.0); MEAN CORPUSCULAR HGB CONC 34.7 % (32.0-36.0); MEAN PLATELET VOLUME 7.7 FL (7.0-11.0); MONO % 6.1 % (0.0-8.0); MONOCYTE # 0.5 TH/MM3 (0-0.9); NEUT % 80.6 % (16.0-70.0); PLATELET COUNT 201 TH/MM3 (150-450); RED BLOOD COUNT 4.16 MIL/MM3 (4.00-5.30); RED CELL DISTRIBUTION WIDTH 13.1 % (11.6-17.2); WHITE BLOOD COUNT 8.9 TH/MM3 (4.0-11.0)
[2017-07-18 16:52] LABS: ALBUMIN 3.1 GM/DL (3.4-5.0); ALT (GPT) 10 U/L (10-53); AST (GOT) 12 U/L (15-37); BICARBONATE 27.6 MEQ/L (21.0-32.0); BLOOD UREA NITROGEN 8 MG/DL (7-18); CALCIUM 8.7 MG/DL (8.5-10.1); CHLORIDE 102 MEQ/L (98-107); CREATININE 0.43 MG/DL (0.50-1.00); GLOMERULAR FILTRATION RATE 177 ML/MIN (>89); GLUCOSE,RANDOM 94 MG/DL (74-106); SODIUM (NA) 136 MEQ/L (136-145)
[2017-07-18 16:55] LABS: ALKALINE PHOSPHATASE 67 U/L (45-117); TOTAL BILIRUBIN ADULT 0.5 MG/DL (0.2-1.0); TOTAL PROTEIN 7.1 GM/DL (6.4-8.2)
[2017-07-18] MEDS ORDERED: POTASSIUM BICARBONATE 25 MEQ EFFERVESCENT TAB PO ONE (17:30)
--- NOTE | 2017-07-18 18:28 | PD ---
HPI Chief Complaint: Pain: Acute or Chronic Time Seen by Provider: 17:07 Travel History International Travel<30 days: No Contact w/Intl Traveler<30days: No Traveled to known affect area: No History of Present Illness HPI The patient was seen and examined in the presence of the nurse. This patient has some vague diffuse minor complaints. He has some diffuse myalgias and body aches. She has some discomfort in her sides. Her pain is rather diffuse including the chest but not specifically chest pain. She is not short of breath. She has no hemoptysis or fever or cough or runny nose or congestion. She denies pelvic pain or vaginal bleeding. She is 16 weeks dated by ultrasound. She does follow with OB regularly. Symptoms severity is mild. No alleviating factors. No exacerbating factors. Duration one week. PFSH Past Medical History Cancer: No Cardiovascular Problems: No Diminished Hearing: No Endocrine: No Genitourinary: No Immune Disorder: No Implanted Vascular Access Dvce: No Musculoskeletal: No Neurologic: No Psychiatric: No Reproductive: Yes (PCOS) Respiratory: No Immunizations Current: No Myocardial Infarction: Yes (SINCE 5TH GRADE; (11/12/10 patient denies)) Tetanus Vaccination: < 5 Years Influenza Vaccination: Yes ?: : 6 Para: 2 Miscarriage: 3 : 1 Ovarian Cysts: Yes Dilation and Curettage (D&C): Yes Past Surgical History Gynecologic Surgery: Yes Other Surgery: No Social History Alcohol Use: No Tobacco Use: No Substance Use: Yes (marijuana occasionally ) Allergies-Medications (Allergen,Severity, Reaction): Coded Allergies: cephalexin (Unverified Allergy, Severe, THROAT SWELLS, ITCHING, 07/18/17) Reported Meds & Prescriptions Reported Meds & Active Scripts Active Review of Systems General / Constitutional: No: Fever Eyes: No: Visual changes HENT: No: Headaches Cardiovascular: Positive: Chest Pain or Discomfort Respiratory: No: Shortness of Breath Gastrointestinal: No: Abdominal Pain Genitourinary: No: Dysuria Musculoskeletal: Positive: Myalgias, Pain Skin: No Rash Neurologic: No: Weakness Psychiatric: No: Depression Endocrine: No: Polydipsia Hematologic/Lymphatic: No: Easy Bruising Physical Exam Narrative GENERAL: Well-nourished, well-developed patient in no apparent distress. SKIN: Focused skin assessment reveals no rash and nodules. Skin is Warm and dry. HEAD: Atraumatic. Normocephalic. EYES: Pupils equal and round. No scleral icterus. No injection or drainage. ENT: No nasal bleeding or discharge. Mucous membranes pink and moist. NECK: Trachea midline. No JVD. CARDIOVASCULAR: Regular rate and rhythm. No murmur appreciated. RESPIRATORY: No accessory muscle use. Clear to auscultation. Breath sounds equal bilaterally. GASTROINTESTINAL: Abdomen soft, non-tender, nondistended. Hepatic and splenic margins not palpable. Nontender uterus is palpable a few centimeters below the umbilicus MUSCULOSKELETAL: No obvious deformities. No clubbing. No cyanosis. No edema. NEUROLOGICAL: Awake and alert. No obvious cranial nerve deficits. Motor grossly within normal limits. Normal speech. PSYCHIATRIC: Appropriate mood and affect; insight and judgment normal. Data Data Last Documented VS Vital Signs Date Time Temp Pulse Resp B/P (MAP) Pulse Ox O2 Delivery O2 Flow Rate FiO2 07/18/17 13:56 98.3 101 18 139/68 (91) 99 Orders Orders Complete Blood Count With Diff (07/18/17 14:12) Comprehensive Metabolic Panel (07/18/17 14:12) Influenzae A/B Antigen (07/18/17 14:12) Electrocardiogram (07/18/17 ) Urinalysis - C+S If Indicated (07/18/17 14:12) Potassium Bicarb Eff (Effer-K Eff) (07/18/17 17:30) Labs Laboratory Tests Test 07/18/17 14:00 07/18/17 16:05 Urine Color YELLOW Urine Turbidity HAZY Urine pH 6.0 Urine Specific [place] 1.019 Urine Protein TRACE mg/dL Urine Glucose (UA) NEG mg/dL Urine Ketones 10 mg/dL Urine Occult Blood NEG Urine Nitrite NEG Urine Bilirubin NEG Urine Urobilinogen 2.0 MG/DL Urine Leukocyte Esterase MOD Urine RBC 1 /hpf Urine WBC 4 /hpf Urine Squamous Epithelial Cells 23 /hpf Urine Bacteria FEW /hpf Urine Mucus FEW /lpf Microscopic Urinalysis Comment CULT NOT INDICATED White Blood Count 8.9 TH/MM3 Red Blood Count 4.16 MIL/MM3 Hemoglobin 12.9 GM/DL Hematocrit 37.1 % Mean Corpuscular Volume 89.3 FL Mean Corpuscular Hemoglobin 31.0 PG Mean Corpuscular Hemoglobin Concent 34.7 % Red Cell Distribution Width 13.1 % Platelet Count 201 TH/MM3 Mean Platelet Volume 7.7 FL Neutrophils (%) (Auto) 80.6 % Lymphocytes (%) (Auto) 12.0 % Monocytes (%) (Auto) 6.1 % Eosinophils (%) (Auto) 1.1 % Basophils (%) (Auto) 0.2 % Neutrophils # (Auto) 7.2 TH/MM3 Lymphocytes # (Auto) 1.1 TH/MM3 Monocytes # (Auto) 0.5 TH/MM3 Eosinophils # (Auto) 0.1 TH/MM3 Basophils # (Auto) 0.0 TH/MM3 CBC Comment DIFF FINAL Differential Comment Blood Urea Nitrogen 8 MG/DL Creatinine 0.43 MG/DL Random Glucose 94 MG/DL Total Protein 7.1 GM/DL Albumin 3.1 GM/DL Calcium Level 8.7 MG/DL Alkaline Phosphatase 67 U/L Aspartate Amino Transf (AST/SGOT) 12 U/L Alanine Aminotransferase (ALT/SGPT) 10 U/L Total Bilirubin 0.5 MG/DL Sodium Level 136 MEQ/L Potassium Level 3.2 MEQ/L Chloride Level 102 MEQ/L Carbon Dioxide Level 27.6 MEQ/L Anion Gap 6 MEQ/L Estimat Glomerular Filtration Rate 177 ML/MIN [facility] [place] Medical Decision Making Medical Screen Exam Complete: Yes Emergency Medical Condition: Yes Medical Record Reviewed: Yes Differential Diagnosis Myalgia, musculoskeletal pains, flu syndrome Narrative Course I have reviewed the patient's electronic medical record. On a clinical basis this patient looks really well. She has normal vitals and a normal exam. She is text thing in the room and doesn't look to be any discomfort. She is not short of breath. Is currently not having chest pain I do not have any clinical suspicion of PE despite the risk factor of being Some workup was done to rule out some abnormalities metabolically CBC is normal Metabolic profile is normal except for hypokalemia 3.2 I gave her 50 mEq replacement orally LFTs are normal Urinalysis clean Transabdominal bedside ultrasound was done. She has an IUP with good movement and heart tones She has normal EKG Diagnosis Primary Impression: Malaise and fatigue Additional Impressions: Nausea and vomiting during Hypokalemia Non-cardiac chest pain Additional Instructions: The patient was advised to follow up with their physician and return if they worsen. Med/Other Pt SpecificInfo: Other Disposition: 01 DISCHARGE HOME Condition: Stable Kocisko,Apolinar J. MD Jul 18, 2017 18:28
--- NOTE | 2017-07-19 14:35 | EKG ---
Date Performed: 07/18/2017 Time Performed: 15:55:50 PTAGE: 26 years EKG: Sinus rhythm WITH SINUS ARRHYTHMIA NORMAL ECG NO PREVIOUS TRACING DOCTOR: Kirstin Biswas Interpretating Date/Time 07/19/2017 14:30:31
== END 2017-07-18 18:46 | disposition home or self-care (01) ==
LOC: NEPD 13:53
DX: O26.812 Pregnancy related exhaustion and fatigue, second trimester (principal); O21.9 Vomiting of pregnancy, unspecified; O99.282 Endocrine, nutritional and metabolic diseases complicating pregnancy, second trimester; E87.6 Hypokalemia; Z3A.16 16 weeks gestation of pregnancy
CPT/HCPCS: 80053; 81001; 85025; 87804; 93005

== ENCOUNTER 2017-08-24 16:16 | Emergency (ER) | payer MEDICAID ==
[2017-08-24] MEDS ORDERED: HYDR2.5C TOPICAL (17:13)
[2017-08-24] MEDS ORDERED: HYDR50CA PO (17:14)
--- NOTE | 2017-08-24 17:14 | PD ---
HPI Chief Complaint Itching and rash Over her body last 2 weeks Date Seen: Aug 24, 2017 Time Seen: 16:56 Travel History International Travel<30 Days: No Contact w/Intl Traveler<30Days: No Known Affected Area: No History of Present Illness HPI 26-year-old white female G6 P 2 at 23 weeks post care for women[facility] clinic and presents complaining 2 weeks worsening itching all over body and a rash that started before the itching on abdomen somewhat on her back and legs, so no other related complaints no bleeding,, contractions or abdominal pain. Patient tried Benadryl with no real success Weeks Gestation: 23 Para: 2 : 6 History Obstetric History Obstetric History 2 vaginal deliveries 3 early losses Social History Alcohol Use: No Tobacco Use: No Substance Abuse: No Allergies-Medications (Allergen,Severity, Reaction): Coded Allergies: cephalexin (Unverified Allergy, Severe, THROAT SWELLS, ITCHING, 07/18/17) Review of Systems General / Constitutional: No: Fever, Weight Gain, Chills, Other Eyes: No: Diploplia, Blurred Vision, Visual changes, Pain, Photophobia HENT: No: Headaches, Vertigo, Lightheadedness Cardiovascular: No: Irregular Rhythm, Chest Pain or Discomfort, Palpitations, Tachycardia, Syncope, Varicosities, Edema, Cyanosis Respiratory: No: Cough, Short of Breath, Other Gastrointestinal: No: Nausea, Vomiting, Diarrhea Genitourinary: No: Decreased Urinary Output, Oliguria Musculoskeletal: No: Limited ROM, Weakness, Cramping, Edema, Pain Skin: Rash, Itching, No Dryness, No Lumps, No Change in Pigmentation, No Change in Nails, No Alopecia, No Lesions Neurologic: No: Weakness, Dizziness, Syncope, Focal Abnormalities, Coordination Problem, Headache, Slurred Speech, Seizures Psychiatric: No: Depression, Suicidal Ideations, Homicidal Ideation Endocrine: No: Heat Intolerance, Cold Intolerance, Polydipsia, Polyuria, Other Physical Exam Narrative GENERAL: Well-nourished, well-developed patient. SKIN: Warm and dry. There is rash that is on her abdomen and upper back somewhat on her extremities, rash is red. He has slightly raised plaque-like areas. And another areas is almost petechial as mentioned this rash is mainly in her abdomen.. nettie Umbilical spreading out laterally. Also the rash seen on her mid back is prominent, and there is spots on her arms and legs, however the patient states that she itches all over HEAD: Normocephalic and atraumatic. EYES: No scleral icterus. No injection or drainage. ENT: No nasal drainage noted. Mucous membranes pink. Airway patent. NECK: Supple, trachea midline. No JVD. CARDIOVASCULAR: Regular rate and rhythm without murmurs, gallops, or rubs. RESPIRATORY: Breath sounds equal bilaterally. No accessory muscle use. BREASTS: Bilateral exam showed no masses , no retractions, no nipple discharge. ABDOMEN/GI: Abdomen soft, non-tender, bowel sounds present, no rebound, no guarding, rash as mentioned above Gravid to [23-] weeks size Fundal Height: [-23] GENITOURINARY: External G : [-] Membranes: [intact Uterine Contractions: [none-] FHT's: 150s EXTREMITIES: No cyanosis or edema. Several small areas of the rash noted BACK: Nontender without obvious deformity. No CVA tenderness. Rash seen as mentioned above NEUROLOGICAL: Awake and alert. Motor and sensory grossly within normal limits. Five out of 5 muscle strength in all muscle groups. Normal speech. MDM Interpretation(s) Patient is a 26-year-old white female now at 23 weeks gestation presents with 2 week history of worsening rash in the back and legs very puritic , she was supposed to go and get bile acids drawn she could not make it she has not have those done and needs to get them, this rash is likely a case of PUPPPS [ pruritic urticarial papules and plaques of ] Plan Plan for patient to get a prescription of hydrocortisone cream mixed with antipuritic medication that she can use at home also mixed with some Benadryl cream, prescription for Atarax 50 mg 4 times daily for itching, also use clear calamine lotion on other areas are not quite as itching or rash noted. If she does not improve with those measures she may need oral prednisone or Medrol Dosepak needed Diagnosis Diagnosis: Primary Impression: PUPPP (pruritic urticarial papules and plaques of ) Additional Impression: 23 weeks gestation of Disposition: 01 DISCHARGE HOME Condition: Stable Scripts Hydroxyzine Pamoate (Hydroxyzine Pamoate) 50 Mg Cap 50 MG PO QID Y for ITCHING for 10 Days, #30 CAP 1 Refill Prov: Julian Gusman II, MD 08/24/17 Hydrocortisone Topical (Hydrocortisone Topical) 2.5% Cream 1 APPLIC TOPICAL Q8HR for Rash/Inflammation for 14 Days, #6 GM 2 Refills Prov: Julian Gusman II, MD 08/24/17 Julian Gusman II, MD Aug 24, 2017 17:14
== END 2017-08-24 17:38 | disposition home or self-care (01) ==
LOC: HOBED 16:16
DX: O26.86 Pruritic urticarial papules and plaques of pregnancy (PUPPP) (principal); Z3A.23 23 weeks gestation of pregnancy
CPT/HCPCS: 99284

== ENCOUNTER 2017-09-03 12:59 | Emergency (ER) | payer MEDICAID ==
[~2017-09-03] VITALS: Ht 152.4 cm; Wt 48.0 kg
[~2017-09-03 12:59] MED LIST changes: +HYDR2.5C TOPICAL; +HYDR50CA PO; -IBUP-232 PO; -MAGICADU2 SWISH-SPIT; -OXYC1TAB63 PO; -PENI500T PO
[2017-09-03 13:25] VITALS: BP 124/74; PULSE 80; RESP 16; TEMP 98; O2SAT 99
--- NOTE | 2017-09-03 16:13 | PD ---
HPI Chief Complaint: Musculoskeletal Complaint Time Seen by Provider: 15:58 Travel History International Travel<30 days: No Contact w/Intl Traveler<30days: No Traveled to known affect area: No History of Present Illness HPI 26-year-old female presents emergency department for evaluation of left shoulder pain 1 week. She cannot recall any injury. She states she may have slept on it wrong. She states she can hardly lift the arm without severe pain. Patient denies any alterations in sensation. She is 27 weeks . She has no other symptoms to report. PFSH Past Medical History Cancer: No Cardiovascular Problems: No Diminished Hearing: No Endocrine: No Genitourinary: No Immune Disorder: No Implanted Vascular Access Dvce: No Musculoskeletal: No Neurologic: No Psychiatric: No Reproductive: Yes (PCOS) Respiratory: No Immunizations Current: No Myocardial Infarction: Yes (SINCE 5TH GRADE; (11/12/10 patient denies)) : 6 Para: 2 Miscarriage: 3 : 1 Ovarian Cysts: Yes Dilation and Curettage (D&C): Yes Past Surgical History Gynecologic Surgery: Yes Other Surgery: No Social History Alcohol Use: No Tobacco Use: No Substance Use: Yes (marijuana occasionally ) Allergies-Medications (Allergen,Severity, Reaction): Coded Allergies: cephalexin (Unverified Allergy, Severe, THROAT SWELLS, ITCHING, 09/03/17) Reported Meds & Prescriptions Reported Meds & Active Scripts Active No Active Prescriptions or Reported Medications Review of Systems Except as stated in HPI: all other systems reviewed are Neg Physical Exam Narrative GENERAL: Well-nourished, well-developed female patient, ambulatory and in no acute distress. SKIN: Focused skin assessment warm/dry. HEAD: Normocephalic. EYES: No scleral icterus. No injection or drainage. NECK: Supple, trachea midline. No JVD or lymphadenopathy. No cervical spine tenderness. CARDIOVASCULAR: Regular rate and rhythm without murmurs, gallops, or rubs. RESPIRATORY: Breath sounds equal bilaterally. No accessory muscle use. GASTROINTESTINAL: Abdomen soft, non-tender, nondistended. MUSCULOSKELETAL: No cyanosis, or edema. No deformity. Distal pulses are palpable. Cap refills within normal limits. Patient is reluctant to abduct the left shoulder or put her hand behind her back on the left side. No crepitus with rotation. No erythema. BACK: Nontender without obvious deformity. No CVA tenderness. Data Data Last Documented VS Vital Signs Date Time Temp Pulse Resp B/P (MAP) Pulse Ox O2 Delivery O2 Flow Rate FiO2 09/03/17 13:25 98.0 80 16 124/74 (91) 99 Orders Orders Shoulder, Complete (>2vws) (09/03/17 ) Splint Or Brace Apply/Monitor (09/03/17 16:20) Ed Discharge Order (09/03/17 17:16) Sling Cradle Arm (09/03/17 ) MDM Medical Decision Making Medical Screen Exam Complete: Yes Emergency Medical Condition: Yes Medical Record Reviewed: Yes Differential Diagnosis Tendinitis versus sprain versus osteoarthritic pain versus internal derangement Narrative Course 26-year-old female presents emergency department for evaluation of left shoulder pain with no preceding injury. X-ray imaging is confirmed no acute bony abnormality. Patient is provided a sling and counseled on exercises. I have encouraged her to follow-up with a primary care provider, seek orthopedic evaluation if symptoms persist. She agrees to return immediately with any acute worsening symptoms. Diagnosis Primary Impression: Left shoulder pain Qualified Codes: M25.512 - Pain in left shoulder Referrals: Primary Care Physician Patient Instructions: Exercises for Internal and External Shoulder Rotation (ED ), Exercises for Shoulder Abduction and Adduction (ED), Exercises for Shoulder Flexion and Extension (ED), General Instructions, Shoulder Pain (ED) Additional Instructions: Ice and/or warm moist heat may help to alleviate symptoms Sling for support Daily range of motion exercises Do not sleeping her sling Follow-up with a primary care provider Seek orthopedic evaluation if symptoms persist Return immediately with any acute worsening symptoms Med/Other Pt SpecificInfo: No Change to Meds Scripts No Active Prescriptions or Reported Meds Disposition: 01 DISCHARGE HOME Condition: Stable Avis Brooke Sep 03, 2017 16:13
--- NOTE | 2017-09-03 17:10 | RADRPT ---
EXAM DATE/TIME: 09/03/2017 16:34 [facility] COMPARISON: No previous studies available for comparison. INDICATIONS : Left shoulder pain. Patient states no trauma to shoulder. MEDICAL HISTORY : None. SURGICAL HISTORY : None. ENCOUNTER: Initial ACUITY: 1 week PAIN SCORE: 7/10 LOCATION: Left shoulder FINDINGS: Multiple view examination of the left shoulder demonstrates no evidence of fracture or dislocation. The glenohumeral and acromioclavicular joints are maintained. There is normal range of motion betwee n internal and external rotation. Bony mineralization is normal. CONCLUSION: Normal examination for a patient of this age. Christiano Busby MD FACR on September 03, 2017 at 17:07 Board Certified Radiologist. This report was verified electronically.
== END 2017-09-03 17:51 | disposition home or self-care (01) ==
LOC: NEPD 12:59
DX: O26.892 Other specified pregnancy related conditions, second trimester (principal); M25.512 Pain in left shoulder; Z3A.27 27 weeks gestation of pregnancy
CPT/HCPCS: 73030; 99283

== ENCOUNTER 2017-09-29 15:20 | Emergency (ER) | payer MEDICAID ==
[~2017-09-29] VITALS: Ht 152.4 cm; Wt 49.0 kg
--- NOTE | 2017-09-29 16:39 | PD ---
HPI Chief Complaint pelvic pressure Date Seen: Sep 29, 2017 Time Seen: 16:10 Travel History International Travel<30 Days: No Contact w/Intl Traveler<30Days: No Known Affected Area: No History of Present Illness HPI Ms Kumari is a at approx 28/5 weeks followed by [facility] who p/w pelvic pressure since last night with light spotting and inability to "keep anything down" for the past 4 days. Pt states she experienced numbness and tingling in her legs yesterday evening while carrying her 1 year old. The tingling was followed by leg weakness and she caught herself before falling. She did not lose consciousness but following this, began feeling increased pelvic pressure accompanied by very light spotting the pt says is like "freckling". Pt states every time she eats a bite or two, the food comes right back up. She is not nauseous at all though. This problem has existed for 4 days now. Pt has been taking tylenol PRN as well as PNV but no other medications. Pt states she has felt dizzy, but no CHENG, no CP, SOB, diarrhea, dysuria, or other sxs. Weeks Gestation: 28 Para: 2 : 5 Miscarriage: 1 : 1 History Past Medical History Narrative Medical Sciatica Obstetric History Obstetric History Pt's LMP was before Thanksgiving DESIRE 12/28/17 First at term 1 early first trimester miscarriage requiring D&C 1 elective Last with IUGR followed by IOL at 39 weeks in Jul 2016 Past Surgical History Narrative Surgical D&C Family History Narrative Family History Mother - gallbladder problems Father - DM, heart problems Social History Alcohol Use: No Tobacco Use: Yes (pt recently quit smoking) Substance Abuse: Yes (marijuana every 2-3 days until several weeks ago) Allergies-Medications (Allergen,Severity, Reaction): Coded Allergies: cephalexin (Unverified Allergy, Severe, THROAT SWELLS, ITCHING, 09/03/17) Home Meds No Active Prescriptions or Reported Meds Review of Systems General / Constitutional: No: Fever, Chills Eyes: No: Visual changes HENT: Lightheadedness, No: Headaches Cardiovascular: No: Chest Pain or Discomfort, Palpitations Respiratory: No: Cough, Short of Breath Gastrointestinal: Vomiting, No: Nausea, Diarrhea, Abdominal Pain Genitourinary: Pelvic Pain, Vaginal Bleeding (very light since last night), No : Dysuria, Discharge Musculoskeletal: Weakness, No: Cramping, Edema Skin: No Rash Neurologic: Weakness, Dizziness, No: Headache Physical Exam HR 79 / BP 108/58 / RR 18 Narrative GENERAL: Well-nourished, well-developed patient in NAD, a little anxious. SKIN: Warm and dry. No rashes or lesions. HEAD: Normocephalic and atraumatic. EYES: No scleral icterus. No injection or drainage. EOMI. ENT: No nasal drainage noted. Mucous membranes pink. Airway patent. NECK: Supple, trachea midline. No JVD. CARDIOVASCULAR: Regular rate and rhythm without murmurs, gallops, or rubs. RESPIRATORY: Breath sounds equal bilaterally. No accessory muscle use. No increased WOB. ABDOMEN/GI: Abdomen soft, non-tender, bowel sounds present, no rebound, no guarding Gravid to 28 weeks size GENITOURINARY: External Genitalia: intact and normal in appearance Cervix: - Dilatation: 0-1 Effacement: long Station: -3 Presentation: - Membranes: intact Uterine Contractions: absent FHT's: Category: 1 Baseline: 140 Reactive: yes Variability: moderate Decels: absent EXTREMITIES: No cyanosis or edema. BACK: Nontender without obvious deformity. No CVA tenderness. NEUROLOGICAL: Awake and alert. Motor and sensory grossly within normal limits. Five out of 5 muscle strength in all muscle groups. Normal speech. Data Data Vital Signs Reviewed: Yes Orders Orders Vital Signs (Adult) .ON ADMISSION (09/29/17 16:21) ^ Labor Status (09/29/17 16:21) Urinalysis - C+S If Indicated (09/29/17 16:21) ^ Non Stress Test (09/29/17 16:21) ^ Hydration (09/29/17 16:21) MDM Narrative Course / MDM 26YO at 28/5 weeks p/w pelvic pressure since last night. Consider dehydration secondary to poor intake and vomiting. Pt is Rh negative and has not received a Rhogam injection this . 1. IUP -Monitor and toco -UA -Encouraged hydration (urine sample was dark zenaida) 2. Sciatica -Advise to limit lifting as can worsen sciatica 3. Vomiting in -Encourage PO intake -Zofran 4mg sublingual Pt dw Dr Kang Diagnosis Diagnosis: Primary Impression: Sciatica Qualified Codes: M54.30 - Sciatica, unspecified side Additional Impression: Antepartum dehydration Scripts No Active Prescriptions or Reported Meds Mg Cox MD R1 Sep 29, 2017 16:39
[2017-09-29] MEDS ORDERED: ONDANSETRON ODT 4 MG TAB PO ONE (17:15)
[2017-09-29 17:45] LABS: BILIRUBIN, URINE NEG (NEG); BLOOD, URINE NEG (NEG); GLUCOSE,URINE NEG (NEG); KETONE, URINE 10 mg/dL (NEG); MUCUS URINE FEW /lpf (OCC); NITRITE,URINE NEG (NEG); SQUAMOUS EPITHELIAL CELL URINE 3 /hpf (0-5); URINE COLOR YELLOW (YELLW/STRAW); URINE LEUKOCYTE ESTERASE NEG (NEG)
[2017-09-29 18:00] VITALS: BP 110/60; PULSE 60; RESP 18; TEMP 98.2
== END 2017-09-29 19:02 | disposition home or self-care (01) ==
LOC: HOBED 15:20
DX: O26.893 Other specified pregnancy related conditions, third trimester (principal); M54.30 Sciatica, unspecified side; E86.0 Dehydration; Z3A.28 28 weeks gestation of pregnancy
CPT/HCPCS: 81001; 99284

== ENCOUNTER 2017-11-02 10:01 | Emergency (ER) | payer MEDICAID ==
--- NOTE | 2017-11-02 10:20 | PD ---
HPI Chief Complaint Possible ROM Date Seen: November 02, 2017 Travel History International Travel<30 Days: No Contact w/Intl Traveler<30Days: No Known Affected Area: No History of Present Illness HPI The patient is a pleasant 27-year-old at 33/1 weeks gestation [facility] who presents with complaints of leakage of fluid since this past Tuesday. The patient also endorses irregular contractions since about this Tuesday as well. Endorses positive movements. Denies any other abnormal vaginal discharge or bleeding. Denies fevers or chills. She states her has been uncomplicated thus far. Para: 2 : 5 Miscarriage: 1 : 1 History Past Medical History Narrative Medical Sciatica Obstetric History Obstetric History Pt's LMP was before Thanksgiving DESIRE 12/28/17 First at term 1 early first trimester miscarriage requiring D&C 1 elective Last with IUGR followed by IOL at 39 weeks in Jul 2016 Past Surgical History Narrative Surgical D&C Family History Narrative Family History Mother - gallbladder problems Father - DM, heart problems Social History Alcohol Use: No Tobacco Use: Yes (pt recently quit smoking) Substance Abuse: Yes (marijuana every 2-3 days until several weeks ago) Allergies-Medications (Allergen,Severity, Reaction): Coded Allergies: cephalexin (Unverified Allergy, Severe, THROAT SWELLS, ITCHING, 09/03/17) Home Meds No Active Prescriptions or Reported Meds Review of Systems Except as stated in HPI: all other systems reviewed are Neg Physical Exam Narrative GENERAL: Well-nourished, well-developed patient. SKIN: Warm and dry. HEAD: Normocephalic and atraumatic. EYES: No scleral icterus. No injection or drainage. ENT: No nasal drainage noted. Mucous membranes pink. Airway patent. NECK: Supple, trachea midline. No JVD. CARDIOVASCULAR: Regular rate and rhythm without murmurs, gallops, or rubs. RESPIRATORY: Breath sounds equal bilaterally. No accessory muscle use. ABDOMEN/GI: Abdomen soft, non-tender, bowel sounds present, no rebound, no guarding Gravid to 33 weeks size GENITOURINARY: External Genitalia: intact and normal in appearance Cervix: [-] Dilatation: [-] Effacement: [-] Station: [-] Presentation: [-] Membranes: [-] Uterine Contractions: [-] FHT's: Category: I Baseline: 130s Reactive: +accels Variability: moderate Decels: none noted EXTREMITIES: No cyanosis or edema. BACK: Nontender without obvious deformity. No CVA tenderness. NEUROLOGICAL: Awake and alert. Motor and sensory grossly within normal limits. Normal speech. Data Data Vital Signs Reviewed: Yes MDM Medical Record Reviewed: Yes Plan 27 year old at 33/1 weeks gestation being evaluated due to reported leakage of fluid since this past Tuesday. 1. IUP - Category I tracing - Amnisure is negative - Labor precautions reviewed with the patient - Discussed signs or symptoms that would warrant a return visit to OB triage for reevaluation - Instructed patient to continue follow-up for routine care with her OB provider staci Kang Diagnosis Diagnosis: Primary Impression: 33 weeks gestation of Disposition: 01 DISCHARGE HOME Condition: Stable Scripts No Active Prescriptions or Reported Meds Patient Instructions: General Instructions, Early Labor Signs (ED), Labor (ED) Christian Vora MD R2 November 02, 2017 10:20
== END 2017-11-02 11:37 | disposition home or self-care (01) ==
LOC: HOBED 10:01
DX: O26.893 Other specified pregnancy related conditions, third trimester (principal); Z3A.33 33 weeks gestation of pregnancy
CPT/HCPCS: 84112; 99284

== ENCOUNTER 2017-11-08 01:45 | Emergency (ER) | payer MEDICAID ==
[2017-11-08] MEDS ORDERED: LACTATED RINGER'S 1000 ML INJ 1,000 ML IV SCH (02:32)
--- NOTE | 2017-11-08 02:44 | PD ---
HPI Chief Complaint Leakage of fluid and contractions Date Seen: November 08, 2017 Time Seen: 02:37 Travel History International Travel<30 Days: No Contact w/Intl Traveler<30Days: No Known Affected Area: No History of Present Illness HPI Patient is 27-year-old white female a 2 at 34 weeks who [facility] and presents complaining of leakage of fluid. She also complains of contractions and is lauren every 2 minutes at this time somewhat uncomfortable. Patient had intercourse this evening she went to bed around 9:00 and woke up leaking fluid at 1 AM. heart tones are reactive and as mentioned above she is lauren and her amnisure is negative Weeks Gestation: 34 Para: 2 : 5 Last Menstrual Period: November 08, 2017 Miscarriage: 2 History Obstetric History Obstetric History 2 vaginal deliveries 2 early losses Social History Alcohol Use: No Tobacco Use: No Substance Abuse: No Allergies-Medications (Allergen,Severity, Reaction): Coded Allergies: cephalexin (Unverified Allergy, Severe, THROAT SWELLS, ITCHING, 09/03/17) Home Meds No Active Prescriptions or Reported Meds Review of Systems General / Constitutional: No: Fever, Weight Gain, Chills, Other Eyes: No: Diploplia, Blurred Vision, Visual changes, Pain, Photophobia HENT: No: Headaches, Vertigo, Lightheadedness Cardiovascular: No: Irregular Rhythm, Chest Pain or Discomfort, Palpitations, Tachycardia, Syncope, Varicosities, Edema, Cyanosis Respiratory: No: Cough, Short of Breath, Other Gastrointestinal: No: Nausea, Vomiting, Diarrhea Genitourinary: Discharge, No: Decreased Urinary Output, Oliguria Musculoskeletal: No: Limited ROM, Weakness, Cramping, Edema, Pain Skin: No Rash, No Itching, No Dryness, No Lumps, No Change in Pigmentation, No Change in Nails, No Alopecia, No Lesions Neurologic: No: Weakness, Dizziness, Syncope, Focal Abnormalities, Coordination Problem, Headache, Slurred Speech, Seizures Psychiatric: No: Depression, Suicidal Ideations, Homicidal Ideation Endocrine: No: Heat Intolerance, Cold Intolerance, Polydipsia, Polyuria, Other Physical Exam Narrative GENERAL: Well-nourished, well-developed patient. SKIN: Warm and dry. HEAD: Normocephalic and atraumatic. EYES: No scleral icterus. No injection or drainage. ENT: No nasal drainage noted. Mucous membranes pink. Airway patent. NECK: Supple, trachea midline. No JVD. CARDIOVASCULAR: Regular rate and rhythm without murmurs, gallops, or rubs. RESPIRATORY: Breath sounds equal bilaterally. No accessory muscle use. BREASTS: Bilateral exam showed no masses , no retractions, no nipple discharge. ABDOMEN/GI: Abdomen soft, non-tender, bowel sounds present, no rebound, no guarding Gravid to [-34] weeks size Fundal Height: [-34] GENITOURINARY: External Genitalia: intact and normal in appearance BUS glands: [-] Cervix: [post-] Dilatation: [-FT] Effacement: [-thick] Station: [-3] Presentation: [vtx-] Membranes: [intact ]amnisure neg Uterine Contractions: [q 2 min-] FHT's: Category: [1-] Baseline: [133-] Reactive: [R-] Variability: [mod-] Decels: [0-] EXTREMITIES: No cyanosis or edema. BACK: Nontender without obvious deformity. No CVA tenderness. NEUROLOGICAL: Awake and alert. Motor and sensory grossly within normal limits. Five out of 5 muscle strength in all muscle groups. Normal speech. Data Data Orders Orders Vital Signs (Adult) .ON ADMISSION (11/08/17 02:32) ^ Labor Status (11/08/17 02:32) ^ Non Stress Test (11/08/17 02:32) Lactated Ringer's 1000 Ml Inj (Lr 1000 M (11/08/17 02:32) Terbutaline Inj (Brethine Inj) (11/08/17 02:45) Fentanyl Inj (Fentanyl Inj) (11/08/17 02:45) Labs Urine dip on OB ED is negative MDM Interpretation(s) 27-year-old white female 34 weeks complains of leakage of fluid however amnisure is negative. She is lauren at this time and I think both with leakage of fluid and contractions are result of having had intercourse earlier this evening. Cervix is within normal limits for somebody 34 weeks and had several babies a fingertip/thick/posterior Plan Plan to IV hydrate, subcu terbutaline, and IV narcotic for pain relief as well as toco lysis of contractions seen. If these measures are successful and will be able to discharge the patient home to bedrest, Tylenol as needed, p.o. hydration and symptomatic measures for relief Diagnosis Diagnosis: Primary Impression: No leakage of amniotic fluid into vagina Additional Impressions: contractions 34 weeks gestation of Disposition: 01 DISCHARGE HOME Condition: Stable Scripts No Active Prescriptions or Reported Meds Julian Gusman II, MD November 08, 2017 02:44
[2017-11-08] MEDS ORDERED: TERBUTALINE INJ 1 MG/ML AMP SQ PRN (02:45)
== END 2017-11-08 03:40 | disposition home or self-care (01) ==
LOC: HOBED 01:45
DX: O47.03 False labor before 37 completed weeks of gestation, third trimester (principal); Z3A.34 34 weeks gestation of pregnancy
CPT/HCPCS: 59025; 84112; 96361; 96372; 96374; 99284; J3010; J3105; J7120

== ENCOUNTER 2017-11-08 11:12 | Inpatient (IN) | payer MEDICAID ==
[~2017-11-08] VITALS: Ht 152.4 cm; Wt 49.0 kg
--- NOTE | 2017-11-08 11:47 | PD ---
HPI Chief Complaint having contractions History of Present Illness HPI 27 year old at 34 weeks complaining of contractions since 2am this morning. She came to [place] where she was seen by Dr. Gusman this morning, and received a bolus of IV LR, along with IM fentanyl and IM terbutaline. She was then discharged. The contractions temporarily resolved, but returned around 5am this morning. She described them as coming on in waves, and constant during those times. She is still feeling movement. She currently has minimal nausea, pelvic pain and back pain, but denies any fluid loss or vaginal bleeding. She also denies chest pain, shortness of breath, headaches, or dizziness. Weeks Gestation: 34 Para: 5 : 2 Last Menstrual Period: November 08, 2017 (before ) Miscarriage: 1 : 1 History Past Medical History Narrative Medical Sciatica Obstetric History Obstetric History Pt's LMP was before DESIRE 12/28/17 First at term 1 early first trimester miscarriage requiring D&C 1 elective Last with IUGR followed by IOL at 39 weeks in Jul 2016 Past Surgical History Narrative Surgical D&C Family History Narrative Family History Mother - gallbladder problems Father - DM, heart problems Social History Alcohol Use: No Tobacco Use: Yes (pt recently quit smoking ) Substance Abuse: Yes (marijuana every 2-3 days until several weeks ago) Allergies-Medications (Allergen,Severity, Reaction): Coded Allergies: cephalexin (Unverified Allergy, Severe, THROAT SWELLS, ITCHING, 09/03/17) Home Meds No Active Prescriptions or Reported Meds Review of Systems Except as stated in HPI: all other systems reviewed are Neg Physical Exam Narrative GENERAL: Well-nourished, well-developed patient. SKIN: Warm and dry. HEAD: Normocephalic and atraumatic. EYES: No scleral icterus. No injection or drainage. ENT: No nasal drainage noted. Mucous membranes pink. Airway patent. NECK: Supple, trachea midline. No JVD. CARDIOVASCULAR: Regular rate and rhythm without murmurs, gallops, or rubs. RESPIRATORY: Breath sounds equal bilaterally. No accessory muscle use. BREASTS: Bilateral exam showed no masses , no retractions, no nipple discharge. ABDOMEN/GI: Abdomen soft, non-tender, bowel sounds present, no rebound, no guarding Gravid to 34 weeks size FHT's: Category: I Baseline: 150's Reactive: + accels Variability: moderate Decels: none noted EXTREMITIES: No cyanosis or edema. BACK: Nontender without obvious deformity. No CVA tenderness. NEUROLOGICAL: Awake and alert. Motor and sensory grossly within normal limits. Five out of 5 muscle strength in all muscle groups. Normal speech. Data Data Vital Signs Reviewed: Yes MDM Medical Record Reviewed: Yes Narrative Course / MDM 27 year old at 34 weeks presents for continued contractions. Her cervix was finger tip, thick effacement, and -3 station when she arrived this morning at 2am. She was rechecked today and membranes are intact, 2cm dilated, 50% effacement, and -3 station. Scripts No Active Prescriptions or Reported Meds Eliazar Erickson MD, R1 November 08, 2017 11:47
[2017-11-08] MEDS ORDERED: LACTATED RINGER'S 1000 ML INJ 1,000 ML IV PRN (12:41)
--- NOTE | 2017-11-08 12:41 | HHI.HP ---
History & Physical H&P HPI Chief Complaint having contractions History of Present Illness HPI 27 year old at 34 weeks complaining of contractions since 2am this morning. She came to [place] where she was seen by Dr. Gusman this morning, and received a bolus of IV LR, along with IM fentanyl and IM terbutaline. She was then discharged. The contractions temporarily resolved, but returned around 5am this morning. She described them as coming on in waves, and constant during those times. She is still feeling movement. She currently has minimal nausea, pelvic pain and back pain, but denies any fluid loss or vaginal bleeding. She also denies chest pain, shortness of breath, headaches, or dizziness. Weeks Gestation: 34 Para: 5 : 2 Last Menstrual Period: November 08, 2017 (before ) Miscarriage: 1 : 1 History (Limited) History Past Medical History Narrative Medical Sciatica Obstetric History Obstetric History Pt's LMP was before DESIRE 12/28/17 First at term 1 early first trimester miscarriage requiring D&C 1 elective Last with IUGR followed by IOL at 39 weeks in Jul 2016 Past Surgical History Narrative Surgical D&C Family History Narrative Family History Mother - gallbladder problems Father - DM, heart problems Social History Alcohol Use: No Tobacco Use: Yes (pt recently quit smoking ) Substance Abuse: Yes (marijuana every 2-3 days until several weeks ago) Allergies-Medications Allergies-Medications (Allergen,Severity, Reaction): Coded Allergies: cephalexin (Unverified Allergy, Severe, THROAT SWELLS, ITCHING, 09/03/17) Home Meds No Active Prescriptions or Reported Meds ROS Review of Systems Except as stated in HPI: all other systems reviewed are Neg Physical Exam Physical Exam Narrative GENERAL: Well-nourished, well-developed patient. SKIN: Warm and dry. HEAD: Normocephalic and atraumatic. EYES: No scleral icterus. No injection or drainage. ENT: No nasal drainage noted. Mucous membranes pink. Airway patent. NECK: Supple, trachea midline. No JVD. CARDIOVASCULAR: Regular rate and rhythm without murmurs, gallops, or rubs. RESPIRATORY: Breath sounds equal bilaterally. No accessory muscle use. BREASTS: Bilateral exam showed no masses , no retractions, no nipple discharge. ABDOMEN/GI: Abdomen soft, non-tender, bowel sounds present, no rebound, no guarding Gravid to 34 weeks size FHT's: Category: I Baseline: 150's Reactive: + accels Variability: moderate Decels: none noted EXTREMITIES: No cyanosis or edema. BACK: Nontender without obvious deformity. No CVA tenderness. NEUROLOGICAL: Awake and alert. Motor and sensory grossly within normal limits. Five out of 5 muscle strength in all muscle groups. Normal speech. Data Data Data Vital Signs Reviewed: Yes MDM MDM Medical Record Reviewed: Yes Narrative Course / MDM 27 year old at 34 weeks presents for continued contractions. Her cervix was finger tip, thick effacement, and -3 station when she arrived this morning at 2am. She was rechecked today and membranes are intact, 2cm dilated, 50% effacement, and -3 station. Will admit patient for further monitoring. 1. Labor: Start IV MgSO4 Start IM Betamethasone Continue monitoring 2. Intrauterine at 34 weeks Tracing- Category I VS stable NPO Scripts No Active Prescriptions or Reported Meds Jacinto Mackey MS4 Eliazar Erickson MD, R1 November 08, 2017 12:41
[2017-11-08] MEDS ORDERED: MINERAL OIL 10 ML VIAL TOPICAL PRN (12:45)
[2017-11-08] MEDS ORDERED: LIDOCAINE HCL 1% 50 ML VIAL INFIL PRN (12:45)
[2017-11-08] MEDS ORDERED: MAGNESIUM SULFATE 4 GM PREMIX 100 ML IV ONE (12:45)
[2017-11-08] MEDS ORDERED: OXYTOCIN 30 UNITS-500ML PREMIX 500 ML IV ONE (12:45)
[2017-11-08] MEDS ORDERED: CITRIC ACID-SODIUM CITRATE LIQ 30 ML UDC PO SCH (12:45)
[2017-11-08] MEDS: LACTATED RINGER'S 1000 ML INJ 1,000 ML IV SCH ×2 (13:20→23:59)
[2017-11-08] MEDS: MAGNESIUM SULFATE 40 GM PREMIX 1,000 ML IV SCH (13:33)
[2017-11-08 13:44] LABS: AUTOMATED NEUTROPHIL # 7.8 TH/MM3 (1.8-7.7); BASOPHIL % 0.3 % (0.0-2.0); EOSINOPHIL # 0.1 TH/MM3 (0-0.4); EOSINOPHIL % 1.1 % (0.0-4.0); HEMATOCRIT 28.7 % (35.0-46.0); HEMOGLOBIN 10.1 GM/DL (11.6-15.3); LYMPH % 19.6 % (9.0-44.0); LYMPHOCYTE # 2.1 TH/MM3 (1.0-4.8); MEAN CELL VOLUME 85.7 FL (80.0-100.0); MEAN CORPUSCULAR HEMOGLOBIN 30.3 PG (27.0-34.0); MEAN CORPUSCULAR HGB CONC 35.4 % (32.0-36.0); MEAN PLATELET VOLUME 8.5 FL (7.0-11.0); MONO % 7.9 % (0.0-8.0); MONOCYTE # 0.9 TH/MM3 (0-0.9); NEUT % 71.1 % (16.0-70.0); PLATELET COUNT 161 TH/MM3 (150-450); RED BLOOD COUNT 3.34 MIL/MM3 (4.00-5.30); RED CELL DISTRIBUTION WIDTH 13.4 % (11.6-17.2); WHITE BLOOD COUNT 10.9 TH/MM3 (4.0-11.0)
[2017-11-08 13:47] LABS: BACTERIA, URINE RARE /hpf; BILIRUBIN, URINE NEG (NEG); BLOOD, URINE NEG (NEG); GLUCOSE,URINE NEG (NEG); KETONE, URINE NEG (NEG); NITRITE,URINE NEG (NEG); PH, URINE 7.5 (5.0-8.5); SQUAMOUS EPITHELIAL CELL URINE 5 /hpf (0-5); URINE COLOR LIGHT-YELLOW (YELLW/STRAW); URINE LEUKOCYTE ESTERASE SMALL (NEG)
[2017-11-08] MEDS: BETAMETHASONE SOD PHOS/ACETATE SUSP 30 MG/5 ML VIAL IM SCH (15:16)
[2017-11-08] MEDS ORDERED: LIDOCAINE 2% JELLY 5 ML TUBE OTHER ONE (20:45)
[2017-11-08] MEDS: ONDANSETRON ODT 4 MG TAB PO PRN (21:20)
[2017-11-09] MEDS: ONDANSETRON ODT 4 MG TAB PO PRN ×2 (04:29→11:24)
[2017-11-09] MEDS: MAGNESIUM SULFATE 40 GM PREMIX 1,000 ML IV SCH (04:48)
[2017-11-09] MEDS: LACTATED RINGER'S 1000 ML INJ 1,000 ML IV SCH ×2 (05:30→15:15)
--- NOTE | 2017-11-09 09:10 | PD.OB.ANTE ---
Subjective Interval History Patient seen and examined this morning. Patient states overall she is feeling well. She endorses feeling infrequent, low intensity contractions. She denies any loss of fluid or vaginal bleeding. Denies confusion. Denies fevers or chills. Endorses good movements. She otherwise denies any concerns or complaints. Antepartum ROS: Reports: movement normal, Contractions, Denies: New complaints, Loss of fluid, Vaginal bleeding Objective Lab & Micro Results Test 11/08/17 13:20 White Blood Count 10.9 TH/MM3 Red Blood Count 3.34 MIL/MM3 Hemoglobin 10.1 GM/DL Hematocrit 28.7 % Mean Corpuscular Volume 85.7 FL Mean Corpuscular Hemoglobin 30.3 PG Mean Corpuscular Hemoglobin Concent 35.4 % Red Cell Distribution Width 13.4 % Platelet Count 161 TH/MM3 Mean Platelet Volume 8.5 FL Neutrophils (%) (Auto) 71.1 % Lymphocytes (%) (Auto) 19.6 % Monocytes (%) (Auto) 7.9 % Eosinophils (%) (Auto) 1.1 % Basophils (%) (Auto) 0.3 % Neutrophils # (Auto) 7.8 TH/MM3 Lymphocytes # (Auto) 2.1 TH/MM3 Monocytes # (Auto) 0.9 TH/MM3 Eosinophils # (Auto) 0.1 TH/MM3 Basophils # (Auto) 0.0 TH/MM3 CBC Comment DIFF FINAL Differential Comment Urine Color LIGHT-YELLOW Urine Turbidity HAZY Urine pH 7.5 Urine Specific [place] 1.005 Urine Protein NEG mg/dL Urine Glucose (UA) NEG mg/dL Urine Ketones NEG mg/dL Urine Occult Blood NEG Urine Nitrite NEG Urine Bilirubin NEG Urine Urobilinogen LESS THAN 2.0 MG/DL Urine Leukocyte Esterase SMALL Urine RBC LESS THAN 1 /hpf Urine WBC 2 /hpf Urine Squamous Epithelial Cells 5 /hpf Urine Bacteria RARE /hpf Microscopic Urinalysis Comment CULT NOT INDICATED Urine Opiates Screen NEG Urine Barbiturates Screen NEG Urine Amphetamines Screen NEG Urine Benzodiazepines Screen NEG Urine Cocaine Screen NEG Urine Cannabinoids Screen POS Physical Exam GENERAL: Well-nourished, well-developed patient. CARDIOVASCULAR: Regular rate and rhythm without murmurs, gallops, or rubs. RESPIRATORY: Breath sounds equal bilaterally. No accessory muscle use. ABDOMEN/GI: Abdomen soft, non-tender. Uterine Contractions: Irregular FHT's: Category: I Baseline: 120s Reactive: +accels Variability: Moderate Decels: None noted EXTREMITIES: No cyanosis or edema, non-tender, without signs of DVT. Assessment and Plan Assessment and Plan 27 year old at 34/1 weeks admitted to antepartum due to perterm labor. 1. Labor - Continue magnesium sulfate IV - First dose betamethasone given 11/08 at 15:16, 2nd dose due after 24 hours - Continue monitoring 2. Intrauterine at 34 weeks Tracing - Category I Repeat cervical exam if further contractions VS stable Anticipate discharge home tomorrow pending no cervical change and adequate tocolysis dw Dr. Jorge Luis Vora,Christian YAN R2 November 09, 2017 09:10
[2017-11-09] MEDS ORDERED: DOCUSATE SODIUM 50 MG/SENNA 8.6 MG TAB PO PRN (15:00)
[2017-11-09 15:15] VITALS: RESP 18
[2017-11-09] MEDS: BETAMETHASONE SOD PHOS/ACETATE SUSP 30 MG/5 ML VIAL IM SCH (15:15)
[2017-11-09] MEDS ORDERED: LORazepam 2 MG/ML VIAL IV PUSH ONE (19:15)
--- NOTE | 2017-11-09 20:29 | HHI.PR ---
DETECTIVE HOMIC[employer] SQUAD Note Note Called to see patient due to contractions. I checked the patient earlier today around 11 AM because of some contraction pain and her cervix was 1-2 cm 50% effaced and the vertex was high. This was unchanged from her initial admission. Patient had some family members and a boyfriend who visited today and there was some verbal accusations and some arguments that took place during that time that made the patient quite emotionally upset. She complained of contractions again approximately an hour ago but her major complaints were hot flashes and feeling of anxiety and that she felt really poorly with the magnesium sulfate. I checked her again and her cervix was unchanged with still 1-2 cm 50% effective effaced the vertex was high and the cervix was posterior. Magnesium sulfate has been decreased to 1 g/h due to the patient's complaints. She has received both betamethasone injections. Triny Horvath MD November 09, 2017 20:29
[2017-11-10] MEDS: LACTATED RINGER'S 1000 ML INJ 1,000 ML IV SCH (01:05)
--- NOTE | 2017-11-10 09:53 | PD.OB.ANTE ---
Subjective Interval History Patient seen and examined this morning at bedside. Magnesium was decreased to 1g /hr overnight night. Patient completed steroid doses x2. No complaints this am. Unchanged cervical exam. Antepartum ROS: Reports: movement normal, Denies: New complaints, Loss of fluid, Vaginal bleeding, Contractions Objective Vital Signs Vital Signs Date Time Temp Pulse Resp B/P (MAP) Pulse Ox O2 Delivery O2 Flow Rate FiO2 18 15:15 18 Physical Exam GENERAL: Well-nourished, well-developed patient. CARDIOVASCULAR: Regular rate and rhythm without murmurs, gallops, or rubs. RESPIRATORY: Breath sounds equal bilaterally. No accessory muscle use. ABDOMEN/GI: Abdomen soft, non-tender. GENITOURINARY: External Genitalia: intact and normal in appearance Cervical exam: intact/1-2/50/-3 FHT's: Category: I Baseline: 120s Reactive: +accels Variability: Moderate Decels: None noted EXTREMITIES: No cyanosis or edema, non-tender, without signs of DVT. Assessment and Plan Assessment and Plan 27 year old at 34/1 weeks admitted to antepartum due to labor. 1. Labor - Completed 24hr dose of magnesium sulfate IV and betamethasone given x2 2. Intrauterine at 34 weeks Tracing - Category I Repeat cervical exam unchanged VS stable Anticipate discharge today dw Eliazar Washington MD, R1 November 10, 2017 09:53
--- NOTE | 2017-11-10 09:54 | HHI.DCPOC ---
Discharge Care Plan Diagnosis: (1) 34 weeks gestation of Goals to Promote Your Health * To prevent worsening of your condition and complications * To maintain your health at the optimal level Directions to Meet Your Goals Take your medications as prescribed Follow your dietary instruction Follow activity as directed Keep your appointments as scheduled Take your immunizations and boosters as scheduled If your symptoms worsen call your PCP, if no PCP go to Urgent Care Center or Emergency Room Smoking is Dangerous to Your Health. Avoid second hand smoke Call the 24-hour hour crisis hotline for domestic abuse at Eliazar Erickson MD, R1 November 10, 2017 09:54
== END 2017-11-10 11:25 | disposition home or self-care (01) | DRG 778 ==
LOC: HOBED 11:12 → H2EA 12:44 → OBSVTOIN 12:44 → UNDOADMOB 12:53 → H2EA 12:53 → UNDODISOB 11-10 11:25
PROVIDERS: ADMIT Obstetrics & Gynecology; ATTEND Obstetrics & Gynecology
DX: O60.03 Preterm labor without delivery, third trimester (principal); Z87.891 Personal history of nicotine dependence; Z83.3 Family history of diabetes mellitus; Z3A.34 34 weeks gestation of pregnancy
CPT/HCPCS: 59025; 80307; 81001; 84112; 85025; 86077; 86850; 86870; 86900; 86901; 86920; 86922; 96361; 96372; 96374; G0481; J0702; J2060; J3010; J3105; J3475; J7120

== ENCOUNTER 2017-11-13 01:59 | Emergency (ER) | payer MEDICAID ==
--- NOTE | 2017-11-13 04:17 | PD ---
HPI Chief Complaint ctxs Date Seen: Nov 13, 2017 Time Seen: 03:54 Travel History International Travel<30 Days: No Contact w/Intl Traveler<30Days: No Known Affected Area: No History of Present Illness HPI pt. is a 27 y/o @ 34 5/7 weeks. pt. states been having ctxs thruout the night increase in freq and intensity. +FM, no lof/vb. at present cervix 1-2 /60/-2 with no cervical change during monitor period. Weeks Gestation: 34 Para: 2 : 5 Miscarriage: 2 History Past Medical History Medical History: Denies Significant Hx Obstetric History Obstetric History , x 2, sab x 2 Past Surgical History Surgical History: No Previous Surgery Family History Family History: Negative Social History Alcohol Use: No Tobacco Use: No Substance Abuse: No Allergies-Medications (Allergen,Severity, Reaction): Coded Allergies: cephalexin (Unverified Allergy, Severe, THROAT SWELLS, ITCHING, 09/03/17) Home Meds No Active Prescriptions or Reported Meds Review of Systems Except as stated in HPI: all other systems reviewed are Neg Physical Exam Narrative GENERAL: Well-nourished, well-developed patient. SKIN: Warm and dry. HEAD: Normocephalic and atraumatic. EYES: No scleral icterus. No injection or drainage. ENT: No nasal drainage noted. Mucous membranes pink. Airway patent. NECK: Supple, trachea midline. No JVD. CARDIOVASCULAR: Regular rate and rhythm without murmurs, gallops, or rubs. RESPIRATORY: Breath sounds equal bilaterally. No accessory muscle use. BREASTS: Bilateral exam showed no masses , no retractions, no nipple discharge. ABDOMEN/GI: Abdomen soft, non-tender, bowel sounds present, no rebound, no guarding Gravid GENITOURINARY: External Genitalia: intact and normal in appearance Dilatation: 1-2 Effacement: 60 Station: high Presentation: cephalic Membranes: intact Uterine Contractions: irreg FHT's: Category: 1 Reactive: + Variability: mod EXTREMITIES: No cyanosis or edema. BACK: Nontender without obvious deformity. No CVA tenderness. NEUROLOGICAL: Awake and alert. Motor and sensory grossly within normal limits. Five out of 5 muscle strength in all muscle groups. Normal speech. Data Data Vital Signs Reviewed: Yes Orders Orders Admitting Interviewer Clear For Discharge (11/13/17 ) [facility] Medical Record Reviewed: Yes Plan pt. not in labor. to be d/c to home. given precautions for return. all ? answered. f/u as sched. Diagnosis Diagnosis: Primary Impression: False labor before 37 completed weeks of gestation Additional Impression: 34 weeks gestation of Disposition: DISCHARGE HOME Scripts No Active Prescriptions or Reported Meds Jagdish Kang Jr., MD Nov 13, 2017 04:17
== END 2017-11-13 10:20 | disposition home or self-care (01) ==
LOC: HOBED 01:59
DX: O47.03 False labor before 37 completed weeks of gestation, third trimester (principal); Z3A.34 34 weeks gestation of pregnancy
CPT/HCPCS: 36415; 84112

== ENCOUNTER 2017-11-15 21:02 | Emergency (ER) | payer MEDICAID ==
--- NOTE | 2017-11-15 21:45 | PD ---
HPI Chief Complaint Contractions and possibly leaking fluid Date Seen: Nov 15, 2017 Time Seen: 21:41 Travel History International Travel<30 Days: No Contact w/Intl Traveler<30Days: No Known Affected Area: No History of Present Illness HPI Patient is 27-year-old white female at 35 weeks [facility] and presents complaining of leakage of fluid and contractions. Her amnisure is negative, heart rate tracing is reactive and she is not having regular contractions only some uterine irritability. Weeks Gestation: 35 Para: 2 : 5 Last Menstrual Period: Nov 15, 2017 History Obstetric History Obstetric History 2 vaginal deliveries 2 early losses Social History Alcohol Use: No Tobacco Use: No Substance Abuse: No Allergies-Medications (Allergen,Severity, Reaction): Coded Allergies: cephalexin (Unverified Allergy, Severe, THROAT SWELLS, ITCHING, 09/03/17) Home Meds No Active Prescriptions or Reported Meds Review of Systems General / Constitutional: No: Fever, Weight Gain, Chills, Other Eyes: No: Diploplia, Blurred Vision, Visual changes, Pain, Photophobia HENT: No: Headaches, Vertigo, Lightheadedness Cardiovascular: No: Irregular Rhythm, Chest Pain or Discomfort, Palpitations, Tachycardia, Syncope, Varicosities, Edema, Cyanosis Respiratory: No: Cough, Short of Breath, Other Gastrointestinal: No: Nausea, Vomiting, Diarrhea Genitourinary: No: Decreased Urinary Output, Oliguria Musculoskeletal: No: Limited ROM, Weakness, Cramping, Edema, Pain Skin: No Rash, No Itching, No Dryness, No Lumps, No Change in Pigmentation, No Change in Nails, No Alopecia, No Lesions Neurologic: No: Weakness, Dizziness, Syncope, Focal Abnormalities, Coordination Problem, Headache, Slurred Speech, Seizures Psychiatric: No: Depression, Suicidal Ideations, Homicidal Ideation Endocrine: No: Heat Intolerance, Cold Intolerance, Polydipsia, Polyuria, Other Physical Exam Narrative GENERAL: Well-nourished, well-developed patient. SKIN: Warm and dry. HEAD: Normocephalic and atraumatic. EYES: No scleral icterus. No injection or drainage. ENT: No nasal drainage noted. Mucous membranes pink. Airway patent. NECK: Supple, trachea midline. No JVD. CARDIOVASCULAR: Regular rate and rhythm without murmurs, gallops, or rubs. RESPIRATORY: Breath sounds equal bilaterally. No accessory muscle use. BREASTS: Bilateral exam showed no masses , no retractions, no nipple discharge. ABDOMEN/GI: Abdomen soft, non-tender, bowel sounds present, no rebound, no guarding Gravid to [35-] weeks size Fundal Height: [-35] GENITOURINARY: External Genitalia: intact and normal in appearance BUS glands: [-] Cervix: [post-] Dilatation: [-2] Effacement: [50-] Station: [-3] Presentation: [-] Membranes: [intact ] Uterine Contractions: [irreg irritability-] FHT's: Category: [1-] Baseline: [133-] Reactive: [-R] Variability: [mod-] Decels: [0-] EXTREMITIES: No cyanosis or edema. BACK: Nontender without obvious deformity. No CVA tenderness. NEUROLOGICAL: Awake and alert. Motor and sensory grossly within normal limits. Five out of 5 muscle strength in all muscle groups. Normal speech. Data Data Labs amnisure neg MDM Interpretation(s) Patient is 27-year-old white female 35 weeks presents complaining of leakage of fluid and her amnisure is negative, she is having some contractions on the monitor just seeing uterine irritability. Her NST is reactive Plan Plan to discharge patient home to bedrest, p.o. fluids, Tylenol, heating pad or hot bath for symptom relief. Diagnosis Diagnosis: Primary Impression: No leakage of amniotic fluid into vagina Additional Impressions: Bandar Robles contractions 35 weeks gestation of Disposition: 01 DISCHARGE HOME Condition: Stable Scripts No Active Prescriptions or Reported Meds Julian Gusman II, MD Nov 15, 2017 21:45
== END 2017-11-15 21:48 | disposition home or self-care (01) ==
LOC: HOBED 21:02
DX: O47.03 False labor before 37 completed weeks of gestation, third trimester (principal); Z3A.35 35 weeks gestation of pregnancy
CPT/HCPCS: 84112; 99284

== ENCOUNTER 2017-11-22 22:31 | Emergency (ER) | payer MEDICAID ==
[~2017-11-22] VITALS: Ht 152.4 cm; Wt 53.5 kg
--- NOTE | 2017-11-22 23:08 | PD ---
HPI Chief Complaint Contraction pain Date Seen: Nov 22, 2017 Time Seen: 23:04 Travel History International Travel<30 Days: No Contact w/Intl Traveler<30Days: No Known Affected Area: No History of Present Illness HPI 27-year-old white female 36 weeks [facility] and presents complaining of contractions. Denies bleeding or leakage of fluid , her NST is reactive and she has had one big contractions since she has been here in a couple small ones but nothing regular Weeks Gestation: 36 Para: 2 : 5 Miscarriage: 2 History Obstetric History Obstetric History 2 vaginal deliveries 2 early losses Social History Alcohol Use: No Tobacco Use: Yes Substance Abuse: No Allergies-Medications (Allergen,Severity, Reaction): Coded Allergies: cephalexin (Unverified Allergy, Severe, THROAT SWELLS, ITCHING, 09/03/17) Home Meds No Active Prescriptions or Reported Meds Review of Systems General / Constitutional: No: Fever, Weight Gain, Chills, Other Eyes: No: Diploplia, Blurred Vision, Visual changes, Pain, Photophobia HENT: No: Headaches, Vertigo, Lightheadedness Cardiovascular: No: Irregular Rhythm, Chest Pain or Discomfort, Palpitations, Tachycardia, Syncope, Varicosities, Edema, Cyanosis Respiratory: No: Cough, Short of Breath, Other Gastrointestinal: Abdominal Pain, No: Nausea, Vomiting, Diarrhea Genitourinary: No: Decreased Urinary Output, Oliguria Musculoskeletal: No: Limited ROM, Weakness, Cramping, Edema, Pain Skin: No Rash, No Itching, No Dryness, No Lumps, No Change in Pigmentation, No Change in Nails, No Alopecia, No Lesions Neurologic: No: Weakness, Dizziness, Syncope, Focal Abnormalities, Coordination Problem, Headache, Slurred Speech, Seizures Psychiatric: No: Depression, Suicidal Ideations, Homicidal Ideation Endocrine: No: Heat Intolerance, Cold Intolerance, Polydipsia, Polyuria, Other Physical Exam Narrative GENERAL: Well-nourished, well-developed patient. SKIN: Warm and dry. HEAD: Normocephalic and atraumatic. EYES: No scleral icterus. No injection or drainage. ENT: No nasal drainage noted. Mucous membranes pink. Airway patent. NECK: Supple, trachea midline. No JVD. CARDIOVASCULAR: Regular rate and rhythm without murmurs, gallops, or rubs. RESPIRATORY: Breath sounds equal bilaterally. No accessory muscle use. BREASTS: Bilateral exam showed no masses , no retractions, no nipple discharge. ABDOMEN/GI: Abdomen soft, non-tender, bowel sounds present, no rebound, no guarding Gravid to [36-] weeks size Fundal Height: [36-] GENITOURINARY: External Genitalia: intact and normal in appearance BUS glands: [-] Cervix: [post-] Dilatation: [-2-3] Effacement: [thick-] Station: [-3] Presentation: [vtx-] Membranes: [intact ] Uterine Contractions: [-irreg] FHT's: Category: [-1] Baseline: 133 Reactive: [-R] Variability: [mod-] Decels: [0-] EXTREMITIES: No cyanosis or edema. BACK: Nontender without obvious deformity. No CVA tenderness. NEUROLOGICAL: Awake and alert. Motor and sensory grossly within normal limits. Five out of 5 muscle strength in all muscle groups. Normal speech. MDM Interpretation(s) 27-year-old white female 36 weeks with Bandar Robles contractions and pain. Cervix is unchanged from recent exam by Dr[facility], cervix is 2-3 thick and posterior, NST is reactive and only irregular contractions seen Plan Plans patient to get a pain shot of Demerol Phenergan to help relieve symptoms and help her rest tonight she can return for increasing pain/bleeding/leakage of fluid Diagnosis Diagnosis: Primary Impression: [place] Robles contractions Additional Impression: 36 weeks gestation of Disposition: 01 DISCHARGE HOME Condition: Stable Scripts No Active Prescriptions or Reported Meds Julian Gusman II, MD Nov 22, 2017 23:08
[2017-11-22] MEDS ORDERED: PROMETHAZINE INJ 25 MG/ML VIAL IM ONE (23:15)
[2017-11-22] MEDS ORDERED: MEPERIDINE HCL 50 MG/ML VIAL IM ONE (23:15)
[2017-11-24] MEDS ORDERED: TYLE325T PO (04:24)
[2017-11-24] MEDS ORDERED: PREN1TAB45 PO (04:24)
== END 2017-11-23 00:12 | disposition home or self-care (01) ==
LOC: HOBED 22:31
DX: O47.03 False labor before 37 completed weeks of gestation, third trimester (principal); Z3A.36 36 weeks gestation of pregnancy
CPT/HCPCS: 96372; J2175; J2550

== ENCOUNTER 2017-11-24 02:06 | Inpatient (IN) | payer MEDICAID ==
[2017-11-24] VITALS (148 sets, daily range): BP systolic 82–135; BP diastolic 42–97; PULSE 62–139; RESP 16–18
[~2017-11-24] VITALS: Ht 152.4 cm; Wt 53.5 kg
[2017-11-24] MEDS ORDERED: TYLE325T PO (04:24)
[2017-11-24] MEDS ORDERED: PREN1TAB45 PO (04:24)
[2017-11-24] MEDS ORDERED: LACTATED RINGER'S 1000 ML INJ 1,000 ML IV PRN (04:33)
[2017-11-24] MEDS ORDERED: CITRIC ACID-SODIUM CITRATE LIQ 30 ML UDC PO SCH (04:45)
[2017-11-24] MEDS ORDERED: LIDOCAINE HCL 1% 50 ML VIAL I-DERMAL PRN (04:45)
[2017-11-24] MEDS ORDERED: MINERAL OIL 10 ML VIAL TOPICAL PRN (04:45)
[2017-11-24] MEDS ORDERED: LIDOCAINE HCL 1% 50 ML VIAL INFIL PRN (04:45)
[2017-11-24] MEDS ORDERED: VANCOMYCIN INJ 1 GM in SODIUM CHLORIDE 0.9% INJ 250 ML IV SCH (04:45)
[2017-11-24] MEDS ORDERED: SODIUM CHLORID 0.9% 500 ML INJ 500 ML IV PRN (04:45)
[2017-11-24] MEDS ORDERED: OXYTOCIN 30 UNITS-500ML PREMIX 500 ML IV ONE (04:45)
--- NOTE | 2017-11-24 04:46 | HHI.HP ---
History & Physical H&P HPI Chief Complaint ctxs Date Seen: Nov 24, 2017 Time Seen: 04:37 Travel History International Travel<30 Days: No Contact w/Intl Traveler<30Days: No Known Affected Area: No History of Present Illness HPI pt. is a 27 y/o @36 2/7 weeks present w/ c/o ctxs. pt. w/ h/o ptl this preg, states having ctxs thruout the evening that have increased in intensity and freq since. +FM, no lof/vb. pt. cervix change from 4/60/high/post to 5/70/ high and mid position during 2 hour observation period. Weeks Gestation: 36 Para: 2 : 5 Miscarriage: 2 History (Limited) History Past Medical History Narrative Medical anxiety Obstetric History Obstetric History , x 2, sab x 2 Family History Family History: Negative Social History Alcohol Use: No Tobacco Use: No Substance Abuse: No Allergies-Medications Allergies-Medications (Allergen,Severity, Reaction): Coded Allergies: cephalexin (Unverified Allergy, Severe, THROAT SWELLS, ITCHING, 11/24/17) Home Meds Reported Medications Acetaminophen (Tylenol) 325 Mg Tab, 650 MG PO Q4H Y for PAIN SCALE 1 TO 5, TAB 0 Refills 11/24/17 Vit,Calc76/Iron/Folic (Pnv 29-1 Tablet) 29 Mg Iron-1 Mg Tablet, 1 TAB PO DAILY 11/24/17 ROS Review of Systems Except as stated in HPI: all other systems reviewed are Neg Physical Exam Physical Exam Narrative GENERAL: Well-nourished, well-developed patient. SKIN: Warm and dry. HEAD: Normocephalic and atraumatic. EYES: No scleral icterus. No injection or drainage. ENT: No nasal drainage noted. Mucous membranes pink. Airway patent. NECK: Supple, trachea midline. No JVD. CARDIOVASCULAR: Regular rate and rhythm without murmurs, gallops, or rubs. RESPIRATORY: Breath sounds equal bilaterally. No accessory muscle use. ABDOMEN/GI: Abdomen soft, non-tender, bowel sounds present, no rebound, no guarding Gravid GENITOURINARY: External Genitalia: intact and normal in appearance Cervix: mid Dilatation: 5 Effacement: 70 Station: high Presentation: cephalic Membranes: intact Uterine Contractions: q3-5min FHT's: Category: 1 Reactive: + Variability: mod EXTREMITIES: No cyanosis or edema. BACK: Nontender without obvious deformity. No CVA tenderness. NEUROLOGICAL: Awake and alert. Motor and sensory grossly within normal limits. Five out of 5 muscle strength in all muscle groups. Normal speech. Data Data Data Vital Signs Reviewed: Yes Orders Orders Ob (2e) Additional Admit Info (11/24/17 04:34) Admit To Inpatient (11/24/17 ) Code Status (11/24/17 04:33) Vital Signs (Adult) .Per protocol (11/24/17 04:33) Activity Oob Ad Dolores (11/24/17 04:33) Heart (11/24/17 04:33) Amnioinfusion (11/24/17 04:33) Urinary Catheter Management .ONCE (11/24/17 04:33) Diet Liquid (11/24/17 Breakfast) Lactated Ringer's 1000 Ml Inj (Lr 1000 M (11/24/17 04:33) Lactated Ringer's 1000 Ml Inj (Lr 1000 M (11/24/17 04:33) Sodium Chlorid 0.9% 500 Ml Inj (Ns 500 M (11/24/17 04:45) Sodium Chlor 0.9% 1000 Ml Inj (Ns 1000 M (11/24/17 04:53) Lidocaine 1% Inj (50 Ml) (Xylocaine 1% I (11/24/17 04:45) Citric Acid-Sodium Citrate Liq (Bicitra (11/24/17 04:45) Fentanyl Inj (Fentanyl Inj) (11/24/17 04:45) Fentanyl Inj (Fentanyl Inj) (11/24/17 04:45) Vancomycin Inj (Vancomycin Inj) (11/24/17 04:45) Complete Blood Count With Diff (11/24/17 04:33) Hold Clot (11/24/17 04:33) Abo/Rh Blood Type (11/24/17 04:33) Urinalysis - C+S If Indicated (11/24/17 04:33) Drug Screen, Random Urine (11/24/17 04:33) Ob/Psych Drug Screen, Urine (11/24/17 04:33) Resp Oxygen Non Rebreathe Mask (11/24/17 ) ^ Epidural / Intrathecal Infus (11/24/17 04:33) Oxytocin 30 Units-500ml Premix (Pitocin (11/24/17 04:45) Lidocaine 1% Inj (50 Ml) (Xylocaine 1% I (11/24/17 04:45) Light Mineral Oil (Muri-Lube Oil) (11/24/17 04:45) Inpatient Certification (11/24/17 ) Group B Strep: Positive MDM MDM Medical Record Reviewed: Yes Plan pt. in labor. will admit. vancomycin for gbs. fentanyl vs epidural for analgesia. fht reassuring. Diagnosis Diagnosis: Primary Impression: Active labor Additional Impression: 36 to 37 weeks gestation of Jagdish Kang Jr., MD Nov 24, 2017 04:46
[2017-11-24] MEDS ORDERED: SODIUM CHLOR 0.9% 1000 ML INJ 1,000 ML IV PRN (04:53)
[2017-11-24 06:07] LABS: AMORPHOUS SEDIMENT, URINE RARE; BILIRUBIN, URINE NEG (NEG); BLOOD, URINE NEG (NEG); GLUCOSE,URINE NEG (NEG); KETONE, URINE NEG (NEG); NITRITE,URINE NEG (NEG); PH, URINE 6.5 (5.0-8.5); SQUAMOUS EPITHELIAL CELL URINE 5 /hpf (0-5); URINE COLOR COLORLESS (YELLW/STRAW); URINE LEUKOCYTE ESTERASE SMALL (NEG)
[2017-11-24 06:11] LABS: AUTOMATED NEUTROPHIL # 11.3 TH/MM3 (1.8-7.7); BASOPHIL # 0.1 TH/MM3 (0-0.2); BASOPHIL % 0.8 % (0.0-2.0); EOSINOPHIL # 0.3 TH/MM3 (0-0.4); EOSINOPHIL % 1.7 % (0.0-4.0); HEMATOCRIT 31.5 % (35.0-46.0); HEMOGLOBIN 10.5 GM/DL (11.6-15.3); LYMPH % 18.1 % (9.0-44.0); LYMPHOCYTE # 2.9 TH/MM3 (1.0-4.8); MEAN CELL VOLUME 84.8 FL (80.0-100.0); MEAN CORPUSCULAR HEMOGLOBIN 28.3 PG (27.0-34.0); MEAN CORPUSCULAR HGB CONC 33.4 % (32.0-36.0); MEAN PLATELET VOLUME 8.4 FL (7.0-11.0); MONO % 8.9 % (0.0-8.0); MONOCYTE # 1.4 TH/MM3 (0-0.9); NEUT % 70.5 % (16.0-70.0); PLATELET COUNT 213 TH/MM3 (150-450); RED BLOOD COUNT 3.71 MIL/MM3 (4.00-5.30); RED CELL DISTRIBUTION WIDTH 13.9 % (11.6-17.2)
[2017-11-24] MEDS ORDERED: fentaNYL 2MCG-BUPIV 0.125% INJ 150 ML EPIDURAL ONE (08:13)
[2017-11-24] MEDS ORDERED: ePHEDrine/NS 25 MG/5 ML SYRINGE ONE (08:13)
[2017-11-24] MEDS: LACTATED RINGER'S 1000 ML INJ 1,000 ML IV SCH ×2 (10:36→17:08)
[2017-11-24] MEDS ORDERED: VANCOMYCIN 1,000 MG/NS 250 ML IV SCH ×2 (18:00)
--- NOTE | 2017-11-24 18:25 | HHI.PR ---
PERSONNEL SECURITY ASSISTANT Note Note Pt was admitted for PTL at 36.2wks. Cvx was 3-->5cm. She has not contracted and cvx remains unchanged for many hours. Will d/c home with precautions. Davian Beck MD Nov 24, 2017 18:25
--- NOTE | 2017-11-24 18:34 | HHI.PR ---
. Attending Note - Vital Signs Date Time Temp Pulse Resp B/P (MAP) Pulse Ox O2 Delivery O2 Flow Rate FiO2 11/24/17 16:00 91 106/71 (83) 11/24/17 16:00 89 11/24/17 16:00 91 11/24/17 15:55 71 11/24/17 15:55 70 11/24/17 15:50 76 11/24/17 15:50 74 11/24/17 15:45 81 11/24/17 15:45 80 11/24/17 15:45 80 103/61 (75) 11/24/17 15:40 91 11/24/17 15:40 87 11/24/17 15:35 83 11/24/17 15:35 78 11/24/17 15:34 69 100/59 (73) 11/24/17 15:30 66 87/44 (58) 11/24/17 15:30 68 11/24/17 15:30 69 11/24/17 15:25 77 11/24/17 15:25 81 11/24/17 15:20 84 11/24/17 15:20 86 11/24/17 15:15 83 101/62 (75) 11/24/17 15:15 81 11/24/17 15:15 77 11/24/17 15:10 77 11/24/17 15:10 80 11/24/17 15:05 79 11/24/17 15:05 81 11/24/17 15:01 74 102/55 (71) 11/24/17 15:00 88 11/24/17 15:00 90 11/24/17 14:55 87 11/24/17 14:55 87 11/24/17 14:50 99 11/24/17 14:50 87 18 14:45 91 107/65 (79) 11/24/17 14:45 91 11/24/17 14:45 87 11/24/17 14:40 78 11/24/17 14:40 82 18 14:35 76 11/24/17 14:35 77 11/24/17 14:30 75 18 14:30 78 100/57 (71) 11/24/17 14:30 80 11/24/17 14:25 69 6/14/18 14:25 71 6/14/18 14:20 67 6/14/18 14:20 69 6/14/18 14:15 71 6/14/18 14:15 65 6/14/18 14:15 71 103/57 (72) 1418 14:10 72 6/14/18 14:10 71 614/18 14:05 86 614/18 14:05 86 1418 14:00 82 106/56 (73) 11/24/17 14:00 78 1418 14:00 84 1418 13:55 79 18 13:55 78 18 13:50 66 1418 13:50 65 1418 13:45 76 1418 13:45 66 1418 13:45 79 97/56 (70) 11/24/17 13:40 98 1418 13:40 98 18 13:36 81 104/63 (77) 11/24/17 13:35 83 14/18 13:35 83 /14/18 13:30 81 117/97 (104) 18 13:30 82 /14/18 13:30 92 14/18 13:25 85 14/18 13:25 89 14/18 13:20 76 614/18 13:20 69 6/14/18 13:15 92 101/54 (70) 14/18 13:15 72 14/18 13:15 74 14/18 13:10 84 14/18 13:10 88 14/18 13:05 65 14/18 13:05 67 14/18 13:01 18 614/18 13:00 71 14/18 13:00 75 99/60 (73) 18 13:00 76 14/18 12:55 71 14/18 12:55 79 14/18 12:50 68 614/18 12:50 68 6/14/18 12:45 79 14/18 12:45 71 104/56 (72) 18 12:40 69 14/18 12:40 72 6/14/18 12:36 67 100/52 (68) 614/18 12:35 68 6/14/18 12:35 65 6/14/18 12:30 66 6/14/18 12:30 66 90/44 (59) 614/18 12:30 67 6/14/18 12:25 73 6/14/18 12:25 73 6/14/18 12:20 66 6/14/18 12:20 66 6/14/18 12:16 70 97/50 (66) 614/18 12:15 68 6/14/18 12:15 69 6/14/18 12:10 80 6/14/18 12:10 82 6/14/18 12:05 16 614/18 12:05 81 614/18 12:05 83 614/18 12:00 76 102/56 (71) 18 12:00 68 /14/18 12:00 73 14/18 11:55 69 6/14/18 11:55 69 6/14/18 11:50 86 6/14/18 11:50 85 6/14/18 11:45 70 6/14/18 11:45 82 6/14/18 11:45 81 106/58 (74) 11/24/18 11:40 74 6/14/18 11:40 76 6/14/18 11:35 73 6/14/18 11:35 75 6/14/18 11:35 16 6/14/18 11:30 81 6/14/18 11:30 101/53 (69) 14/18 11:30 64 6/14/18 11:30 67 6/14/18 11:25 89 6/14/18 11:25 78 6/14/18 11:20 82 6/14/18 11:20 75 6/14/18 11:15 66 6/14/18 11:15 105 6/14/18 11:15 63 6/14/18 11:15 98/67 (77) 14/18 11:10 118 6/14/18 11:10 119 6/14/18 11:05 65 6/14/18 11:05 62 6/14/18 11:00 74 105/64 (78) 6/14/18 11:00 67 6/14/18 11:00 89 11/24/17 10:55 110 11/24/17 10:55 107 11/24/17 10:50 77 11/24/17 10:50 83 18 10:45 66 18 10:45 63 101/66 (78) 11/24/17 10:45 101 11/24/17 10:40 74 11/24/17 10:40 79 11/24/17 10:35 95 11/24/17 10:35 18 11/24/17 10:35 97 11/24/17 10:30 77 107/68 (81) 11/24/17 10:30 81 11/24/17 10:30 78 11/24/17 10:25 95 11/24/17 10:25 93 11/24/17 10:20 66 11/24/17 10:20 64 11/24/17 10:15 82 11/24/17 10:15 82 106/67 (80) 11/24/17 10:15 77 11/24/17 10:10 64 11/24/17 10:10 65 11/24/17 10:05 81 11/24/17 10:05 86 11/24/17 10:00 67 11/24/17 10:00 111 11/24/17 10:00 114 91/51 (64) 11/24/17 09:55 103 11/24/17 09:55 95 11/24/17 09:52 95 113/78 (90) 11/24/17 09:50 110 11/24/17 09:50 116 11/24/17 09:49 107 107/69 (82) 11/24/17 09:45 101 114/69 (84) 11/24/17 09:45 111 11/24/17 09:43 73 116/59 (78) 11/24/17 09:41 85 129/82 (98) 11/24/17 09:40 92 135/94 (108) 11/24/17 09:40 114 18 09:37 64 82/42 (55) 11/24/17 09:35 67 11/24/17 09:35 64 11/24/17 09:33 16 11/24/17 09:30 84 11/24/17 09:30 80 11/24/17 09:30 109/66 (80) 11/24/17 09:30 80 18 09:25 79 18 09:25 68 18 09:25 66 91/51 (64) 11/24/17 09:20 89 11/24/17 09:20 72 6 09:20 87 108/74 (85) 11/24/17 09:15 77 11/24/17 09:15 91 11/24/17 09:15 77 100/61 (74) 11/24/17 09:10 85 11/24/17 09:10 94 11/24/17 09:10 96 115/66 (82) 11/24/17 09:05 86 11/24/17 09:05 78 115/63 (80) 11/24/17 09:05 78 11/24/17 09:00 80 104/62 (76) 11/24/17 09:00 80 11/24/17 09:00 79 11/24/17 08:55 77 11/24/17 08:55 80 105/64 (78) 11/24/17 08:55 82 11/24/17 08:51 72 100/74 (83) 11/24/17 08:50 87 11/24/17 08:50 79 11/24/17 08:46 18 11/24/17 08:45 86 120/95 (103) 11/24/17 08:45 88 11/24/17 08:45 118 11/24/17 08:40 84 11/24/17 08:40 79 11/24/17 08:40 77 113/75 (88) 11/24/17 08:35 82 18 08:35 84 18 08:35 84 119/81 (94) 11/24/17 08:32 92 111/73 (86) 11/24/17 08:30 78 18 08:25 67 18 08:25 139 18 08:20 66 18 08:20 72 1418 08:15 68 18 08:10 68 11/24/17 08:05 66 11/24/17 08:00 16 11/24/17 07:45 65 11/24/17 07:40 73 11/24/17 07:35 87 11/24/17 07:30 90 11/24/17 07:25 72 11/24/17 07:20 81 11/24/17 07:15 75 11/24/17 07:13 75 111/60 (77) 11/24/17 07:10 73 11/24/17 07:05 64 11/24/17 07:00 70 11/24/17 02:55 88 11/24/17 02:50 86 11/24/17 02:45 79 11/24/17 02:40 75 11/24/17 02:35 76 11/24/17 02:30 82 11/24/17 02:25 87 CV - Regular Rate and Rhythm No Murmur Lungs - Clear to Auscultation Abdomen - Soft, Nontender Active Bowel Sounds Present No Masses Extremities - Warm without Edema No Sores or Open Wounds -: 11/24/17 [id number] Davian Beck MD Nov 24, 2017 18:34
== END 2017-11-24 19:44 | disposition home or self-care (01) | DRG 778 ==
LOC: HOBED 02:06 → H2EB 04:34
PROVIDERS: ADMIT Obstetrics & Gynecology; ATTEND Obstetrics & Gynecology
DX: O60.03 Preterm labor without delivery, third trimester (principal); O09.293 Supervision of pregnancy with other poor reproductive or obstetric history, third trimester; Z3A.36 36 weeks gestation of pregnancy
CPT/HCPCS: 80307; 81001; 85025; 86900; 86901; G0481; J2175; J2550; J3370; J7050; J7120

== ENCOUNTER 2017-11-27 22:39 | Emergency (ER) | payer MEDICAID ==
[~2017-11-27 22:39] MED LIST changes: -HYDR2.5C TOPICAL; -HYDR50CA PO; +PREN1TAB45 PO; +TYLE325T PO
--- NOTE | 2017-11-27 23:10 | PD ---
HPI Chief Complaint Contractions Date Seen: Nov 27, 2017 Time Seen: 23:05 Travel History International Travel<30 Days: No Contact w/Intl Traveler<30Days: No Known Affected Area: No History of Present Illness HPI 27-year-old white female 36-37 weeks [facility] and presents with increased contraction activity. Patient was here 3 days ago and was admitted for labor even given an epidural but was reassessed hours later and felt to have no cervical change that she was sent home, she returns now with contractions are strong at home but since she has gotten here they are not quite as strong. No bleeding or leakage of fluid, NST is reactive and only one contraction was seen Weeks Gestation: 36 Para: 2 : 5 History Obstetric History Obstetric History 2 vaginal deliveries 2 losses Social History Alcohol Use: No Tobacco Use: No Substance Abuse: No Allergies-Medications (Allergen,Severity, Reaction): Coded Allergies: cephalexin (Unverified Allergy, Severe, THROAT SWELLS, ITCHING, 11/24/17) Home Meds Reported Medications Acetaminophen (Tylenol) 325 Mg Tab, 650 MG PO Q4H Y for PAIN SCALE 1 TO 5, TAB 0 Refills 11/24/17 Vit,Calc76/Iron/Folic (Pnv 29-1 Tablet) 29 Mg Iron-1 Mg Tablet, 1 TAB PO DAILY 11/24/17 Review of Systems General / Constitutional: No: Fever, Weight Gain, Chills, Other Eyes: No: Diploplia, Blurred Vision, Visual changes, Pain, Photophobia HENT: No: Headaches, Vertigo, Lightheadedness Cardiovascular: No: Irregular Rhythm, Chest Pain or Discomfort, Palpitations, Tachycardia, Syncope, Varicosities, Edema, Cyanosis Respiratory: No: Cough, Short of Breath, Other Gastrointestinal: Abdominal Pain, No: Nausea, Vomiting, Diarrhea Genitourinary: No: Decreased Urinary Output, Oliguria Musculoskeletal: No: Limited ROM, Weakness, Cramping, Edema, Pain Skin: No Rash, No Itching, No Dryness, No Lumps, No Change in Pigmentation, No Change in Nails, No Alopecia, No Lesions Neurologic: No: Weakness, Dizziness, Syncope, Focal Abnormalities, Coordination Problem, Headache, Slurred Speech, Seizures Psychiatric: No: Depression, Suicidal Ideations, Homicidal Ideation Endocrine: No: Heat Intolerance, Cold Intolerance, Polydipsia, Polyuria, Other Physical Exam Narrative GENERAL: Well-nourished, well-developed patient. SKIN: Warm and dry. HEAD: Normocephalic and atraumatic. EYES: No scleral icterus. No injection or drainage. ENT: No nasal drainage noted. Mucous membranes pink. Airway patent. NECK: Supple, trachea midline. No JVD. CARDIOVASCULAR: Regular rate and rhythm without murmurs, gallops, or rubs. RESPIRATORY: Breath sounds equal bilaterally. No accessory muscle use. BREASTS: Bilateral exam showed no masses , no retractions, no nipple discharge. ABDOMEN/GI: Abdomen soft, non-tender, bowel sounds present, no rebound, no guarding Gravid to [-36] weeks size Fundal Height: [36-] GENITOURINARY: External Genitalia: intact and normal in appearance BUS glands: [-] Cervix: [post-] Dilatation: [-4-5] Effacement: [-40] Station: [-3] Presentation: [vtx-] Membranes: [intact or ruptured] Uterine Contractions: [-only 1 seen] FHT's: Category: [1-] Baseline: [-133] Reactive: [-R] Variability: [mod-] Decels: [-0] EXTREMITIES: No cyanosis or edema. BACK: Nontender without obvious deformity. No CVA tenderness. NEUROLOGICAL: Awake and alert. Motor and sensory grossly within normal limits. Five out of 5 muscle strength in all muscle groups. Normal speech. MDM Interpretation(s) 27-year-old white female multiparous 36--37 weeks with false labor, contractions are sporadic, cervix is not changed from prior exam 3 days ago. NST is reactive Plan Planned Demerol Phenergan pain shot for symptom relief, bedrest, p.o. fluids, heating pad or hot bath for symptom relief as well Diagnosis Diagnosis: Primary Impression: Jackson Robles contractions Additional Impression: 36 weeks gestation of Disposition: 01 DISCHARGE HOME Condition: Stable Julian Gusman II, MD Nov 27, 2017 23:10
[2017-11-27] MEDS ORDERED: PROMETHAZINE INJ 25 MG/ML VIAL IM ONE (23:15)
[2017-11-27] MEDS ORDERED: MEPERIDINE HCL 50 MG/ML VIAL IM ONE (23:15)
== END 2017-11-27 23:24 | disposition home or self-care (01) ==
LOC: HOBED 22:39
DX: O47.03 False labor before 37 completed weeks of gestation, third trimester (principal); Z3A.36 36 weeks gestation of pregnancy
CPT/HCPCS: 59025; 96372; 99283; J2175; J2550

== ENCOUNTER 2017-12-05 08:01 | Emergency (ER) | payer MEDICAID ==
--- NOTE | 2017-12-05 08:44 | PD ---
HPI Chief Complaint Contractions Date Seen: Dec 05, 2017 Time Seen: 08:30 Travel History International Travel<30 Days: No Contact w/Intl Traveler<30Days: No Known Affected Area: No History of Present Illness HPI Patient is a 27-year-old A2 at 37/6 presenting to the OB ED with complaints of contractions. [facility] Patient states that overnight she was hardly able to sleep as her contractions have become more frequent happening every 5 minutes and had increased in intensity. She endorses some clear leaking of fluid but no gush of fluid, decreased movement. She has had some occasional spotting with no significant change in the last several days. She denies any fever, chills. Of note, patient states she has not had a OB ultrasound since 20 weeks gestation. History Past Medical History Narrative Medical History of anxiety Obstetric History Obstetric History A2 Unclear history, but both pregnancies are believed to have been delivered vaginally at 39 weeks gestation. 1 of which was induced for IUGR Family History Family History: Negative Social History Alcohol Use: No Tobacco Use: No Substance Abuse: No Allergies-Medications (Allergen,Severity, Reaction): Coded Allergies: cephalexin (Unverified Allergy, Severe, THROAT SWELLS, ITCHING, 11/24/17) Home Meds Reported Medications Acetaminophen (Tylenol) 325 Mg Tab, 650 MG PO Q4H Y for PAIN SCALE 1 TO 5, TAB 0 Refills 11/24/17 Vit,Calc76/Iron/Folic (Pnv 29-1 Tablet) 29 Mg Iron-1 Mg Tablet, 1 TAB PO DAILY 11/24/17 Review of Systems Except as stated in HPI: all other systems reviewed are Neg Physical Exam Narrative GENERAL: Well-nourished, well-developed patient. SKIN: Warm and dry. HEAD: Normocephalic and atraumatic. EYES: No scleral icterus. No injection or drainage. ENT: No nasal drainage noted. Mucous membranes pink. Airway patent. NECK: Supple, trachea midline. No JVD. CARDIOVASCULAR: Regular rate and rhythm without murmurs, gallops, or rubs. RESPIRATORY: Breath sounds equal bilaterally. No accessory muscle use. ABDOMEN/GI: Abdomen soft, non-tender, bowel sounds present, no rebound, no guarding Gravid to 38 weeks size GENITOURINARY: External Genitalia: intact and normal in appearance Cervix: Posterior Dilatation: 2-3 Effacement: 70 Station: -2 Presentation: Vertex Membranes: Intact Uterine Contractions: Contractions every 7 8 minutes with irritability in between FHT's: Category: 1 Baseline: 130 Reactive: y Variability: Moderate Decels: None EXTREMITIES: No cyanosis or edema. BACK: Nontender without obvious deformity. No CVA tenderness. NEUROLOGICAL: Awake and alert. Motor and sensory grossly within normal limits. Five out of 5 muscle strength in all muscle groups. Normal speech. MDM Plan 27-year-old at 37/6 presenting to the OB ED with contractions. Also concern for possible leakage of fluid. Initial exam patient is 2-3/70/-2. Amnisure negative -Category 1 FHT, reassuring -Occasional contractions on the monitor with some irritability in between, but nothing consistent -Amnisure negative -Encourage p.o. fluid intake -Vistaril 50 mg p.o. 1, Demerol 50mg p.o x1 -Urine dip was benign, UA pending -Safe to DC home Diagnosis Diagnosis: Primary Impression: Bandar Robles contractions Disposition: 01 DISCHARGE HOME Condition: Good Rahul Washington MD R1 Dec 05, 2017 08:44
[2017-12-05] MEDS ORDERED: MEPERIDINE HCL 50 MG TAB PO ONE (09:30)
[2017-12-05 10:23] LABS: BACTERIA, URINE RARE /hpf; BILIRUBIN, URINE NEG (NEG); BLOOD, URINE NEG (NEG); GLUCOSE,URINE NEG (NEG); KETONE, URINE NEG (NEG); MUCUS URINE FEW /lpf (OCC); NITRITE,URINE NEG (NEG); SQUAMOUS EPITHELIAL CELL URINE 21 /hpf (0-5); URINE COLOR YELLOW (YELLW/STRAW); URINE LEUKOCYTE ESTERASE MOD (NEG)
== END 2017-12-05 09:58 | disposition home or self-care (01) ==
LOC: HOBED 08:01
DX: O47.1 False labor at or after 37 completed weeks of gestation (principal); Z3A.38 38 weeks gestation of pregnancy
CPT/HCPCS: 59025; 81001; 84112

== ENCOUNTER → 2017-12-08 | Outpatient (CLI) | payer MEDICAID | LOC: HPND 14:14 | PROVIDERS: ATTEND Obstetrics & Gynecology | DX: O36.8130 Decreased fetal movements, third trimester, not applicable or unspecified (principal) | CPT/HCPCS: 76816; 76818 ==

== ENCOUNTER 2017-12-16 02:17 | Inpatient (IN) ==
[2017-12-16] MEDS ORDERED: fentaNYL Citrate Inj 100 MCG/2 ML Ampul IV.PUSH PRN ×4 (02:53→03:08)
[2017-12-16] MEDS ORDERED: Naloxone Inj 0.4 MG/ML Vial IV.PUSH PRN ×2 (02:53→03:08)
[2017-12-16] MEDS ORDERED: Sodium Chlor 0.9% Inj 500 ML IV.SIG ONE ×2 (02:53→03:08)
[2017-12-16] MEDS ORDERED: Oxytocin 30 Units/500ml Premix 30 UNITS/500 ML BAG IV.SIG ONE ×2 (02:53→03:08)
[2017-12-16] MEDS ORDERED: Penicillin G Potassium Inj 5,000,000 UNIT in Sodium Chloride 0.9% Inj 100 ML IV.SIG ONE ×2 (02:53→04:00)
--- NOTE | 2017-12-16 02:53 | ED ---
History of Present Illness Primary Care Physician: UNKNOWN Chief Complaint: Contractions History of Present Illness: 27-year-old who is at 39 weeks gestation comes in complaining complain of contractions. Patient was here about 5 hours ago and she gets medical advice that she did not want to stay for an additional recheck of her cervix. She had had stripping of membranes earlier today through the [facility] clinic and when she came in for 5 hours ago she was 3 cm. She states that she has had worsening contractions since that time. Denies rupture membranes or vaginal bleeding and states that she is group B strep positive and that she is allergic to Keflex but is able to take penicillins without any issues Weeks Gestation:: 39 Para: 2 : 5 - Inpatient Certification If this patient has been admitted as an Inpatient: I certify that the inpatient services were ordered in accordance with Medicare regulations governing the order. This includes certification that hospital inpatient services are reasonable and necessary and in the case of services not specified as inpatient-only under 42 CFR 419.22(n), that they are appropriately provided as inpatient services in accordance to with the 2-midnight benchmark under 43 CFR 412.3(e) Estimated Total Length of Stay (Days): 2 Plans for Post Hospital Care: Home Review of Systems All other systems reviewed negative except as stated in HPI PMF[facility] - Medical / Surgical Hx Neg / Unobtainable Medical Problems Denied: Yes Surgical History: No Previous Surgery (Patient has had 2 prior spontaneous vaginal deliveries at term) - Tobacco History Second Hand Smoke Exposure: No Tobacco Use In Past 30 Days: No Smoking Status: Former smoker Tobacco Type: Cigarettes (Patient smoked cigarettes for 10 years and stopped smoking when she found that she is ) Cigarettes Per Day: 10 - Alcohol History How Often Do You Have a Drink Containing Alcohol: Never (Patient denies) - Substance Use History Substance History: No History of Abuse - Travel History History of Recent Travel: No Medications and Allergies Allergies Allergy/AdvReac Type Severity Reaction Status Date / Time cephalexin Allergy Severe THROAT Unverified 11/24/17 04:23 SWELLS, ITCHING Exam Vital signs: Vital Signs 12/16/17 02:34 Temperature 97.6 F Pulse Rate 67 Respiratory Rate 18 Blood Pressure 117/68 - Constitutional no acute distress, mild distress - Routine HEENT Exam Head: Present: normocephalic, atraumatic - Routine Neck Exam Present: supple, full ROM - Routine Respiratory Exam Present: CTA bilaterally - Routine Cardiovascular Exam Present: RRR - Routine Abdominal Exam Present: soft (Gravid) Triage/Final Diagnosis - Visit Information Date of evaluation: 12/16/17 Comments/Additional reasons for admission: Labor - Evaluation Baseline heart rate: 140 Variability: Moderate (11-25) monitor accelerations: Present monitor decelerations: None Cervical dilation (cm): 5 Cervical effacement (%): 50 station: -2 Vital signs: Vital Signs - 24 hr 12/16/17 02:34 Temperature 97.6 F Pulse Rate 67 Respiratory Rate 18 Blood Pressure 117/68 - Final Diagnosis (1) Mother positive for group B Streptococcus colonization Current Visit: No Status: Acute
[2017-12-16] MEDS ORDERED: Citric Acid/Sodium Citrate Liq 30 ML UDC PO SCH ×2 (03:00→03:15)
[2017-12-16] MEDS ORDERED: Sod Chloride 0.9% Inj 1,000 ML IV.CONT SCH ×2 (03:00→03:15)
--- NOTE | 2017-12-16 03:00 | P.HPOB ---
History of Present Illness Primary Care Physician: [facility] Chief Complaint: Contractions History of Present Illness: 27-year-old, , presents with increased contractions. Patient was here earlier today and left AMA before getting additional cervical check done. Her contractions have progressively gotten more painful over the day and she has returned. She denies any leakage of fluid. Denies any vaginal bleeding. Positive movement. The patient is in severe pain and requesting an epidural and it is difficult to obtain a thorough history. [facility] and has had no complications during her , other than being GBS positive. Patient denies drug use at this time or during the . OB history: 2, largest baby 6 lbs. 4 oz., no complications 2 miscarriages, one spontaneous, one required D&C One termination of Medical history: Noncontributory Allergies: Keflex only No problems with penicillin Weeks Gestation:: 39 Para: 2 : 6 Total # of Miscarriage(s): 2 Total # of Abortions (Spontaneous & Elective): 1 - Inpatient Certification If this patient has been admitted as an Inpatient: I certify that the inpatient services were ordered in accordance with Medicare regulations governing the order. This includes certification that hospital inpatient services are reasonable and necessary and in the case of services not specified as inpatient-only under 42 CFR 419.22(n), that they are appropriately provided as inpatient services in accordance to with the 2-midnight benchmark under 43 CFR 412.3(e) Estimated Total Length of Stay (Days): 2 Plans for Post Hospital Care: Home Review of Systems All other systems reviewed negative except as stated in HPI [facility] - History History Provided By: Patient, Medical Record - Medical / Surgical Hx Neg / Unobtainable Medical Problems Denied: Yes - Tobacco History Second Hand Smoke Exposure: No Tobacco Use In Past 30 Days: No Smoking Status: Former smoker Tobacco Type: Cigarettes (Patient smoked cigarettes for 10 years and stopped smoking when she found that she is ) Cigarettes Per Day: 10 - Alcohol History How Often Do You Have a Drink Containing Alcohol: Never (Patient denies) - Substance Use History Substance History: No History of Abuse - Travel History History of Recent Travel: No Medications and Allergies Active Medications: Active Medications Citric Acid/Sodium Citrate (Sodium Citrate/Citric Acid Liq) 30 ml PO [employer] EDWIN Stop: 12/20/17 02:59 Fentanyl Citrate (Fentanyl Inj) 50 mcg IV.PUSH Q1H PRN PRN Reason: Pain Scale 3 - 5 Fentanyl Citrate (Fentanyl Inj) 100 mcg IV.PUSH Q1H PRN PRN Reason: PAIN SCALE 6 TO 10 Lactated Ringer's (Lr 1000 Ml Inj) 1,000 mls @ 125 mls/hr IV.CONT .Q8H EDWIN Lactated Ringer's (Lr 1000 Ml Inj) 3,000 mls @ 3,000 mls/hr IV.SIG UNSCH ONE Stop: 12/16/17 03:52 Sodium Chloride (Ns Inj) 1,000 mls @ 100 mls/hr IV.CONT .Q10H EDWIN Penicillin G Potassium 5,000, (000 unit/ Sodium Chloride) 100 mls @ 200 mls/hr IV.SIG ONCE ONE Stop: 12/16/17 03:22 Penicillin G Potassium 2,500, (000 unit/ Sodium Chloride) 100 mls @ 200 mls/hr IV.SIG Q4H EDWIN Lidocaine HCl (Xylocaine 1% Inj) 10 ml INFILTRATN PRN PRN PRN Reason: For episiotomy repair Stop: 12/18/17 02:52 Lidocaine HCl (Xylocaine 1% Inj) 0.1 ml INFILTRATN PRN PRN PRN Reason: For IV start Stop: 12/19/17 02:52 Mineral Oil (Muri-Lube Oil) 10 ml TOPICAL PRN PRN PRN Reason: PRN perineal massage Naloxone HCl (Narcan Inj) 0.1 mg IV.PUSH Q2M PRN PRN Reason: for opiate reversal Allergies Allergy/AdvReac Type Severity Reaction Status Date / Time cephalexin Allergy Severe THROAT Verified 12/16/17 04:21 SWELLS, ITCHING Home Medications Medication Instructions Recorded Confirmed Type PNV cmb#95-ferrous fumarate-FA 1 tab PO DAILY 12/16/17 12/16/17 History [] acetaminophen [Tylenol] 650 mg PO Q4H PRN 12/16/17 12/16/17 History diphenhydramine HCl [Benadryl] 1 tab PO DAILY 12/16/17 12/16/17 History Exam Vital signs: Vital Signs 12/16/17 02:34 Temperature 97.6 F Pulse Rate 67 Respiratory Rate 18 Blood Pressure 117/68 Intake & Output 12/15/17 12/15/17 12/16/17 06:59 18:59 06:59 Weight 126 kg - Constitutional no acute distress - Routine Respiratory Exam Present: CTA bilaterally - Routine Cardiovascular Exam Present: RRR, S1, S2 Results - Labs CBC & Chem 7: 12/16/17 03:00 Group B Strep: Positive Caprini VTE Risk Assessment Caprini VTE Risk Assessment: No/Low Risk (score <= 1) Caprini Risk Assessment Model: Point Value = 1 Point Value = 2 Point Value = 3 Point Value = 5 Age 41-60 Minor surgery BMI > 25 kg/m2 Swollen legs Varicose veins or History of unexplained or recurrent spontaneous Oral contraceptives or hormone replacement Sepsis (< 1 month) Serious lung disease, including pneumonia (< 1 month) Abnormal pulmonary function Acute myocardial infarction Congestive heart failure (< 1 month) History of inflammatory bowel disease Medical patient at bed rest Age 61-74 Arthroscopic surgery Major open surgery (> 45 min) Laparoscopic surgery (> 45 min) Malignancy Confined to bed (> 72 hours) Immobilizing plaster cast Central venous access Age >= 75 History of VTE Family history of VTE Factor V Leiden Prothrombin [id number] Lupus anticoagulant Anticardiolipin antibodies Elevated serum homocysteine Heparin-induced thrombocytopenia Other congenital or acquired thrombophilia Stroke (< 1 month) Elective arthroplasty Hip, pelvis, or leg fracture Acute spinal cord injury (< 1 month) Prophylaxis Regimen: Total Risk Factor Score Risk Level Prophylaxis Regimen 0-1 Low Early ambulation 2 Moderate Order ONE of the following: *Sequential Compression Device (SCD) *Heparin 5000 units SQ BID 3-4 Higher Order ONE of the following medications: *Heparin 5000 units SQ TID *Enoxaparin/Lovenox 40 mg SQ daily (WT < 150 kg, CrCl > 30 mL/min) *Enoxaparin/Lovenox 30 mg SQ daily (WT < 150 kg, CrCl > 10-29 mL/min) *Enoxaparin/Lovenox 30 mg SQ BID (WT < 150 kg, CrCl > 30 mL/min) AND/OR *Sequential Compression Device (SCD) 5 or more Highest Order ONE of the following medications: *Heparin 5000 units SQ TID (Preferred with Epidurals) *Enoxaparin/Lovenox 40 mg SQ daily (WT < 150 kg, CrCl > 30 mL/min) *Enoxaparin/Lovenox 30 mg SQ daily (WT < 150 kg, CrCl > 10-29 mL/min) *Enoxaparin/Lovenox 30 mg SQ BID (WT < 150 kg, CrCl > 30 mL/min) AND *Sequential Compression Device (SCD) Assessment and Plan - Diagnosis (1) 39 weeks gestation of Code(s): Z3A.39 - 39 weeks gestation of Status: Acute - Plan Admit for active labor Category 1 tracing, lauren every 2 minutes GBS positive, start penicillin Discussed with Dr. Horvath
[2017-12-16] MEDS ORDERED: fentaNYL 2MCG-Bupiv 0.125% Epi 150 ML EPIDURAL ONE (03:11)
[2017-12-16] MEDS ORDERED: Lidocaine PF 1% Inj 30 ML Vial ONE (03:12)
[2017-12-16 03:13] LABS: Baso # (Auto) 0.1 th/mm3 (0.0-0.2); Baso % (Auto) 0.8 % (0.0-2.0); Eos # (Auto) 0.1 th/mm3 (0.0-0.4); Eos % (Auto) 0.8 % (0.0-4.0); Hematocrit 33.1 % (35.0-46.0); Hemoglobin 10.8 gm/dL (11.6-15.3); Lymph # (Auto) 2.2 th/mm3 (1.0-4.8); Mean Corpuscular HGB Conc 32.7 % (32.0-36.0); Mean Corpuscular Hemoglobin 26.8 pg (27.0-34.0); Mean Corpuscular Volume 82.1 fL (80.0-100.0); Mean Platelet Volume 8.6 fL (7.0-11.0); Mono # (Auto) 1.2 th/mm3 (0.0-0.9); Mono % (Auto) 7.7 % (0.0-8.0); Neut # (Auto) 12.1 th/mm3 (1.8-7.7); Neut % (Auto) 76.7 % (16.0-70.0); Platelet Count 213 th/mm3 (150-450); Red Blood Count 4.04 mil/mm3 (4.00-5.30); Red Cell Distribution Width 14.3 % (11.6-17.2); White Blood Count 15.7 th/mm3 (4.0-11.0)
[2017-12-16 03:33] LABS: Amphetamine Urine With Conf Neg (Neg); Benzodiazepine Urine With Conf Neg (Neg)
[2017-12-16] MEDS ORDERED: fentaNYL Citrate Inj 100 MCG/2 ML Ampul EPIDURAL ONE (03:58)
[2017-12-16] MEDS ORDERED: fentaNYL 2MCG-Bupiv 0.125% Epi 150 ML EPIDURAL SCH (04:15)
[2017-12-16] MEDS ORDERED: Penicillin G Potassium Inj 2,500,000 UNIT in Sodium Chlor 0.9% Inj 100 ML IV.SIG SCH (06:55)
[2017-12-16] MEDS: Penicillin G Potassium Inj 2,500,000 UNIT in Sodium Chlor 0.9% Inj 100 ML IV.SIG SCH ×2 (08:04→11:18)
--- NOTE | 2017-12-16 09:43 | P.OBLABOR ---
Subjective Interval history: 27 YO laboring with AROM at 09:25AM, clear fluid. Cervix 8-9/100/-1. FHT with Cat 2 tracing, BL 130, reactive, moderate, and 2 early decels. Objective Vital Signs: Vital Signs - 8 hr 12/16/17 02:34 12/16/17 02:40 12/16/17 03:25 Temperature 97.6 F Pulse Rate 67 71 89 Respiratory Rate 18 Blood Pressure 117/68 124/88 12/16/17 03:34 12/16/17 03:53 12/16/17 04:00 Temperature 97.6 F Pulse Rate 85 Respiratory Rate 16 16 Blood Pressure 90/68 L 12/16/17 04:02 12/16/17 04:20 12/16/17 04:24 Temperature Pulse Rate 77 76 Respiratory Rate 18 16 Blood Pressure 108/70 113/60 12/16/17 04:35 12/16/17 04:50 12/16/17 04:58 Temperature Pulse Rate 73 61 Respiratory Rate 16 Blood Pressure 98/58 L 108/55 L 12/16/17 05:10 12/16/17 05:30 12/16/17 05:35 Temperature Pulse Rate 62 68 Respiratory Rate 16 Blood Pressure 108/62 114/70 12/16/17 05:45 12/16/17 06:00 12/16/17 06:25 Temperature Pulse Rate 58 L 61 64 Respiratory Rate Blood Pressure 101/62 98/59 L 97/57 L 12/16/17 06:40 12/16/17 07:10 12/16/17 07:25 Temperature Pulse Rate 68 62 59 L Respiratory Rate Blood Pressure 99/56 L 105/62 105/51 L 12/16/17 07:35 12/16/17 07:55 12/16/17 08:25 Temperature 97.8 F Pulse Rate 65 72 64 Respiratory Rate 18 Blood Pressure 97/59 L 110/78 114/68 12/16/17 08:40 12/16/17 08:50 12/16/17 09:00 Temperature Pulse Rate 125 H 65 80 Respiratory Rate Blood Pressure 108/67 109/68 116/75 12/16/17 09:20 Temperature Pulse Rate 61 Respiratory Rate Blood Pressure 108/67 Objective: Pelvic Exam: Cervix: open Dilatation: 8-9 Effacement: 100 Station: -1 Presentation: vtx Membranes: AROM 09:25AM Uterine Contractions: q3-5 minutes FHT's: Category: 1 Baseline: 130 Reactive: yes Variability: moderate Decels: early Assessment and Plan - Diagnosis (1) 39 weeks gestation of Code(s): Z3A.39 - 39 weeks gestation of Status: Acute Plan: 27YO at 39/3 weeks laboring. AROM 09:25AM with clear fluid. Cervix 8-9/100/ -1. FHT with BL 130, reactive, moderate, and 2 early decels. 1. IUP -Monitor and toco -Amniotomy 09:25, clear fluid -Reassuring FHTs as above -Pt being tx for GBS+ with PCN G Pt SDW Jeremiah Horvath and Hernán
[2017-12-16] MEDS ORDERED: Bisacodyl 10 MG Supp RECTAL PRN (11:56)
[2017-12-16] MEDS ORDERED: Witch Hazel 50%/Glyderin 12.5% 40 Pad Jar RECTAL PRN (11:56)
[2017-12-16] MEDS ORDERED: Benzocaine 20% Top Spray 60 ML Can TOPICAL PRN (11:56)
[2017-12-16] MEDS ORDERED: Oxytocin 30 Units/500ml Premix 30 UNITS/500 ML BAG IV.CONT SCH (12:00)
--- NOTE | 2017-12-16 12:16 | P.OBDELI ---
Weeks Gestation: 39 Artificial Rupture of Membrane: Yes Anesthesia: Epidural Episiotomy: none Vaginal Delivery: Spontaneous Presentation: Occiput anterior Nuchal Cord: None Delayed Cord Clamping (45 sec): Yes Placenta: Spontaneous delivery Laceration: 1 deg (In 5 o clock position) Repair: Vicryl running Estimated blood loss (mL): 150 : Male Infant Male A Delivery Date: 12/16/17 Delivery Time: 11:43 score (1 min): 8 score (5 min): 9 Additional Information: Ms. Kumari is a 27yo at 39/3 who presented in labor and was found to be GBS+. 2 doses of penicillin were given. AROM of membranes was performed. Infant' s head was delivered with maternal effort. No nuchal cord was noted. The anterior shoulder delivered closely followed by the posterior shoulder with no difficulty. The infant's body followed. He was placed on the mother's chest and delayed cord clamping was performed. Cord blood was taken. An intact placenta was delivered without difficulty. A first degree laceration was noted around the 5 o clock position. It was repaired with 2 stitches of 3-0 vicryl. Hemostasis was achieved. Routine care will be initiated. Attestation Attestation: The exam, history, and the medical decision-making described in the above note were completed with the assistance of the resident physician. I reviewed and agree with the findings presented. I attest that I had a [id number] encounter with the patient on the same day, and personally performed and documented my assessment and findings in the medical record.
[2017-12-16] MEDS ORDERED: Diphtheria/Tetanus/Pertussis Vaccine Inj 0.5 ML Syringe IM ONE (16:00)
[2017-12-16] MEDS ORDERED: Measles/Mumps/Rubella Vaccine Inj 0.5 ML Vial SQ ONE (16:00)
[2017-12-16] MEDS: Ibuprofen 400 MG Tablet PO PRN (16:39)
[2017-12-16] MEDS ORDERED: Acetaminophen 325 MG Tablet PO PRN (18:18)
[2017-12-17] MEDS: Ibuprofen 400 MG Tablet PO PRN ×3 (00:02→18:11)
--- NOTE | 2017-12-17 10:00 | P.PNOB ---
Subjective Post day: 1 Interval history: Ms. Kumari is a GBS+ 27yo on PPD1 after complicated by a first degree lacerations (repaired). She had no overnight events. She does report abdominal cramping. She has been urinating without difficulties. She has not had a bowel movement but has passed gas. She is breast feeding with no difficulties. She denies nausea or vomiting, dizziness, chest pain, shortness of breath, or calf pain. She has not decided on control at this time. Objective Vital Signs/I&O: Vital Signs 12/16/17 10:00 12/16/17 10:15 12/16/17 10:50 Temperature Pulse Rate 57 L 61 72 Respiratory Rate Blood Pressure 113/68 102/67 109/69 12/16/17 10:55 12/16/17 11:10 12/16/17 11:30 Temperature Pulse Rate 60 57 L 56 L Respiratory Rate Blood Pressure 109/66 109/63 12/16/17 11:45 12/16/17 11:55 12/16/17 12:03 Temperature Pulse Rate 83 78 Respiratory Rate 18 Blood Pressure 126/72 12/16/17 12:12 12/16/17 12:16 12/16/17 12:33 Temperature Pulse Rate 93 H Respiratory Rate 18 18 Blood Pressure 134/94 H 12/16/17 12:34 12/16/17 12:46 12/16/17 13:01 Temperature Pulse Rate 65 55 L 59 L Respiratory Rate Blood Pressure 117/70 130/65 109/63 12/16/17 13:05 12/16/17 13:31 12/16/17 13:46 Temperature Pulse Rate 53 L 63 Respiratory Rate 18 Blood Pressure 118/68 108/55 L 12/16/17 14:35 12/16/17 14:38 12/16/17 20:20 Temperature 98.9 F 98.1 F Pulse Rate 58 L 58 L Respiratory Rate 18 16 18 Blood Pressure 108/62 95/57 L 12/17/17 08:00 Temperature 97.9 F Pulse Rate 59 L Respiratory Rate 16 Blood Pressure 97/62 L Intake & Output 12/16/17 12/17/17 12/17/17 18:59 06:59 18:59 Intake Total 100 / 100 Balance 100 / 100 Intake: IV 100 / 100 Pfizerpen-G Inj 2,500,000 UNIT 100 / 100 In NS Inj 100 ML @ 200 mls/hr IV.SIG Q4H [facility] Rx#:[id number] Result Diagrams: 12/16/17 03:00 Objective Remarks: GENERAL: Well-nourished, well-developed patient. CARDIOVASCULAR: Regular rate and rhythm without murmurs, gallops, or rubs. RESPIRATORY: Breath sounds equal bilaterally. No accessory muscle use. ABDOMEN/GI: Abdomen soft, non-tender. Fundus: Firm, non-tender just below umbilicus. GENITOURINARY: Light to moderate bleeding. EXTREMITIES: No cyanosis or edema, non-tender, without signs of DVT. Medications and IVs: Active Medications Acetaminophen (Tylenol) 650 mg PO Q4H PRN PRN Reason: Abdominal Pain Al Hydroxide/Mg Hydroxide (Milk Of Magnesia Liq) 30 ml PO Q12H PRN PRN Reason: Mild Constipation Benzocaine (Americaine 20% Top [place]) 1 spray TOPICAL Q4H PRN PRN Reason: For Perineum Discomfort Bisacodyl (Dulcolax Supp) 10 mg RECTAL DAILY PRN PRN Reason: SEVERE CONSITIPATION Citric Acid/Sodium Citrate (Sodium Citrate/Citric Acid Liq) 30 ml PO [employer] [facility] Stop: 12/20/17 02:59 Diphenhydramine HCl (Benadryl) 25 mg PO DAILY [facility] Fentanyl Citrate (Fentanyl Inj) 50 mcg IV.PUSH Q1H PRN PRN Reason: Pain Scale 3 - 5 Fentanyl Citrate (Fentanyl Inj) 100 mcg IV.PUSH Q1H PRN PRN Reason: PAIN SCALE 6 TO 10 Lactated Ringer's (Lr 1000 Ml Inj) 1,000 mls @ 125 mls/hr IV.CONT .Q8H [facility] Last Admin: 12/16/17 08:04 Dose: 125 mls/hr Sodium Chloride (Ns Inj) 1,000 mls @ 100 mls/hr IV.CONT .Q10H [facility] Fentanyl/Bupivacaine/Sodium Chlor (Fentanyl 2 Mcg-Bupiv 0.125% Epi) 150 mls @ 0 mls/hr EPIDURAL CONT [facility]; Protocol Penicillin G Potassium 2,500, (000 unit/ Sodium Chloride) 100 mls @ 200 mls/hr IV.SIG Q4H [facility] Last Admin: 12/16/17 11:18 Dose: 200 mls/hr Lactulose (Lactulose Liq) 30 ml PO DAILY PRN PRN Reason: SEVERE CONSITIPATION Lidocaine HCl (Xylocaine 1% Inj) 10 ml INFILTRATN PRN PRN PRN Reason: For episiotomy repair Stop: 12/18/17 02:52 Lidocaine HCl (Xylocaine 1% Inj) 0.1 ml INFILTRATN PRN PRN PRN Reason: For IV start Stop: 12/19/17 02:52 Mineral Oil (Muri-Lube Oil) 10 ml TOPICAL PRN PRN PRN Reason: PRN perineal massage Naloxone HCl (Narcan Inj) 0.1 mg IV.PUSH Q2M PRN PRN Reason: for opiate reversal Ondansetron HCl (Zofran Inj) 4 mg IV.PUSH Q8H PRN PRN Reason: NAUSEA OR VOMITING Senna/Docusate Sodium (Denise-Colace) 1 tab PO BID [facility] Sennosides (Senokot) 17.2 mg PO Q12H PRN PRN Reason: Moderate Constipation Sodium Chloride (Ns Flush) 2 ml IV.FLUSH BID [facility] Sodium Chloride (Ns Flush) 2 ml IV.FLUSH UNSCH PRN PRN Reason: FLUSH AFTER USING IV ACCESS Last Admin: 12/16/17 19:00 Dose: 2 ml Witch Grace/Glycerin (Tucks Pads) 1 applicatio RECTAL QID PRN PRN Reason: HEMORRHOIDS Assessment and Plan - Plan 27YO at 39/3 weeks PPD1 after complicated by GBS+ status. 1. PPD1- Continue routine care 2. Abdominal pain- continue scheduled Tylenol for pain Plans for d/c within the next 48 hours F/u with Dr. Alarcon in 6 weeks for visit Pt SDW Jeremiah Lazo and Luzmaria - Attending Attestation The exam, history, and the medical decision-making described in the above note were completed with the assistance of the resident physician. I reviewed and agree with the findings presented. I attest that I had a [id number] encounter with the patient on the same day, and personally performed and documented my assessment and findings in the medical record.
[2017-12-17] MEDS: Senna/Docusate Sodium 8.6/50 MG Tablet PO SCH ×3 (18:12→21:31)
--- NOTE | 2017-12-18 08:09 | P.PNOB ---
Subjective Post day: 2 Interval history: Ms Pulido is a 27yo on PPD2 complicated by GBS+ status and first degree laceration. She had no overnight events. She has been urinating without difficulties. She has not had a bowel movement but has passed gas. She has minimal abdominal cramping. Her vaginal bleeding is about as much as a light period. She is breast feeding with no difficulties. She denies nausea or vomiting, dizziness, chest pain, shortness of breath, or calf pain. She elects for tubal ligation for control and will follow up with her OB provider to schedule this. Objective Vital Signs/I&O: Vital Signs 12/17/17 20:00 Temperature 98.0 F Pulse Rate 67 Respiratory Rate 18 Blood Pressure 122/77 Result Diagrams: 12/16/17 03:00 Objective Remarks: GENERAL: Well-nourished, well-developed patient. CARDIOVASCULAR: Regular rate and rhythm without murmurs, gallops, or rubs. RESPIRATORY: Breath sounds equal bilaterally. No accessory muscle use. ABDOMEN/GI: Abdomen soft, non-tender. Fundus: Firm, non-tender about 3 cm below umbilicus. GENITOURINARY: Light to moderate bleeding. EXTREMITIES: Trace edema bilaterally, non pitting. No cyanosis, non-tender, without signs of DVT. Medications and IVs: Active Medications Acetaminophen (Tylenol) 650 mg PO Q4H PRN PRN Reason: Abdominal Pain Last Admin: 12/17/17 16:51 Dose: 650 mg Al Hydroxide/Mg Hydroxide (Milk Of Magnesia Liq) 30 ml PO Q12H PRN PRN Reason: Mild Constipation Benzocaine (Americaine 20% Top [place]) 1 spray TOPICAL Q4H PRN PRN Reason: For Perineum Discomfort Bisacodyl (Dulcolax Supp) 10 mg RECTAL DAILY PRN PRN Reason: SEVERE CONSITIPATION Citric Acid/Sodium Citrate (Sodium Citrate/Citric Acid Liq) 30 ml PO [employer] [facility] Stop: 12/20/17 02:59 Diphenhydramine HCl (Benadryl) 25 mg PO DAILY [facility] Fentanyl Citrate (Fentanyl Inj) 50 mcg IV.PUSH Q1H PRN PRN Reason: Pain Scale 3 - 5 Fentanyl Citrate (Fentanyl Inj) 100 mcg IV.PUSH Q1H PRN PRN Reason: PAIN SCALE 6 TO 10 Lactated Ringer's (Lr 1000 Ml Inj) 1,000 mls @ 125 mls/hr IV.CONT .Q8H [facility] Last Admin: 12/16/17 08:04 Dose: 125 mls/hr Sodium Chloride (Ns Inj) 1,000 mls @ 100 mls/hr IV.CONT .Q10H [facility] Fentanyl/Bupivacaine/Sodium Chlor (Fentanyl 2 Mcg-Bupiv 0.125% Epi) 150 mls @ 0 mls/hr EPIDURAL CONT [facility]; Protocol Lactulose (Lactulose Liq) 30 ml PO DAILY PRN PRN Reason: SEVERE CONSITIPATION Lidocaine HCl (Xylocaine 1% Inj) 0.1 ml INFILTRATN PRN PRN PRN Reason: For IV start Stop: 12/19/17 02:52 Mineral Oil (Muri-Lube Oil) 10 ml TOPICAL PRN PRN PRN Reason: PRN perineal massage Naloxone HCl (Narcan Inj) 0.1 mg IV.PUSH Q2M PRN PRN Reason: for opiate reversal Ondansetron HCl (Zofran Inj) 4 mg IV.PUSH Q8H PRN PRN Reason: NAUSEA OR VOMITING Senna/Docusate Sodium (Denise-Colace) 1 tab PO BID [facility] Last Admin: 12/17/17 21:31 Dose: 1 tab Sennosides (Senokot) 17.2 mg PO Q12H PRN PRN Reason: Moderate Constipation Sodium Chloride (Ns Flush) 2 ml IV.FLUSH BID [facility] Sodium Chloride (Ns Flush) 2 ml IV.FLUSH UNSCH PRN PRN Reason: FLUSH AFTER USING IV ACCESS Last Admin: 12/16/17 19:00 Dose: 2 ml Witch Grace/Glycerin (Tucks Pads) 1 applicatio RECTAL QID PRN PRN Reason: HEMORRHOIDS Assessment and Plan - Diagnosis (1) 39 weeks gestation of Code(s): Z3A.39 - 39 weeks gestation of Status: Acute - Plan 27YO at 39/3 weeks PPD2 after complicated by GBS+ status. 1. PPD2- plans for d/c home today. Patient counselled on pelvic rest for 6 weeks , nothing in the vagina, no sexual intercourse or tampons. Showers vs baths for the next 2 weeks. 2. Abdominal pain- patient d/c with ibuprofen and acetaminophen RX. Instructed to alternate for pain Plans for d/c today F/u with OB provider in 6 weeks for visit and discussion of tubal ligation Pt SDW Jeremiah Horvath and Luzmaria
[2017-12-18 10:46] VITALS: BP 125/75; PULSE 55; RESP 16; TEMP 98.7
[2017-12-18] MEDS: Ibuprofen 400 MG Tablet PO PRN (13:40)
[2017-12-18] MEDS ORDERED: Rho Immune Globulin Inj 1,500 UNIT/1.3 ML Vial IM ONE (16:00)
== END 2017-12-18 14:48 | disposition home or self-care (01) ==
LOC: HOBED 02:17 → H2E 02:50 → H1EA 14:13
PROVIDERS: ADMIT Obstetrics & Gynecology Obstetrics; ATTEND Obstetrics & Gynecology Obstetrics
DX: Z3A.39 39 weeks gestation of pregnancy; O47.1 False labor at or after 37 completed weeks of gestation; O70.0 First degree perineal laceration during delivery; Z88.1 Allergy status to other antibiotic agents; Z87.891 Personal history of nicotine dependence; Z37.0 Single live birth; O99.824 Streptococcus B carrier state complicating childbirth; Z23 Encounter for immunization